=== PATIENT | female | born 1935 | race Caucasian/White ===

== ENCOUNTER 2018-03-12 17:08 | Emergency (ER) | payer MEDICARE, OTHER ==
[~2018-03-12] VITALS: Ht 172.7 cm; Wt 68.0 kg
[2018-03-12] MEDS ORDERED: IV NORMAL SALINE 1000ML BAG 1,000 ML IV ONE (18:00)
[2018-03-12] MEDS ORDERED: PANTOPRAZOLE IV PUSH 40 MG VIAL. IVP ONE (18:00)
[2018-03-12] MEDS ORDERED: ONDANSETRON PF 4 MG/2 ML VIAL. IV ONE (18:00)
[2018-03-12] MEDS ORDERED: IOHEXOL 300 MG/ML 100ML VIAL. IV ONE (18:15)
[2018-03-12 18:23] LABS: BASO % 0 % (0-3); EOS % 0 % (0-3); HEMATOCRIT 42.5 % (36.0-47.0); HEMOGLOBIN 14.6 g/dL (12.0-15.5); LYMPH # 1.7 x10^3/uL (1.0-4.8); LYMPH % 19 % (24-48); MEAN CORPUSCULAR HEMOGLOBIN 30 pg (25-35); MEAN CORPUSCULAR HGB CONC 34 g/dL (31-37); MEAN CORPUSCULAR VOLUME 88 fL (79-100); MONO # 0.8 x10^3/uL (0.0-1.1); MONO % 8 % (0-9); NEUT # 6.4 x10^3uL (1.8-7.7); NEUT % 72 % (31-73); PLATELET COUNT 240 x10^3/uL (140-400); RED BLOOD COUNT 4.84 x10^6/uL (3.50-5.40); RED CELL DISTRIBUTION WIDTH 13.4 % (11.5-14.5); WHITE BLOOD COUNT 8.9 x10^3/uL (4.0-11.0)
[2018-03-12] MEDS ORDERED: CONTRAST GIVEN. MC PRN (18:30)
[2018-03-12 18:31] LABS: BILIRUBIN,URINE NEGATIVE (NEG); CLARITY,URINE CLEAR; COLOR,URINE AMBER; NITRITE,URINE NEGATIVE (NEG); PROTEIN,URINE NEGATIVE (NEG-TRACE)
[2018-03-12 18:39] LABS: BARBITURATES NEG (NEG); BENZODIAZEPINES NEG (NEG); CANNABINOIDS NEG (NEG); COCAINE NEG (NEG); METHADONE NEG (NEG); OPIATES NEG (NEG); PHENCYCLIDINE NEG (NEG)
[2018-03-12 18:43] LABS: AMPHETAMINE/METHAMPHETAMINE NEG (NEG)
[2018-03-12 18:44] LABS: CALCIUM 10.1 mg/dL (8.5-10.1); CREATININE 1.1 mg/dL (0.6-1.0); GFR 47.4; POTASSIUM 3.5 mmol/L (3.5-5.1)
[2018-03-12 18:48] LABS: BACTERIA,URINE MODERATE /HPF (0-FEW); HYALINE CASTS, URINE MODERATE /HPF; RBC,URINE 0 /HPF (0-2); SQUAMOUS EPITHELIAL CELL,UR FEW /LPF
[2018-03-12 18:51] LABS: AMORPHOUS SEDIMENT,UR PRESENT /HPF
[2018-03-12 18:56] LABS: ALBUMIN 3.6 g/dL (3.4-5.0); MAGNESIUM 2.2 mg/dL (1.8-2.4); TOTAL BILIRUBIN 0.6 mg/dL (0.2-1.0); TOTAL PROTEIN 7.3 g/dL (6.4-8.2)
--- NOTE | 2018-03-12 19:53 | RAD ---
PQRS Compliance statement: One or more of the following individualized dose reduction techniques were utilized for this examination: 1. Automated exposure control. 2. Adjustment of the mA and/or kV according to patient size. 3. Use of iterative reconstruction technique. Indication:SYNCOPE, nausea and vomiting TECHNIQUE: CT head without IV contrast COMPARISON: None FINDINGS: No pathologic extra-axial or intra-axial fluid collection. The ventricles and basal cisterns are within normal limits. No acute intracranial bleed. No focal loss of rice-white differentiation. Visualized orbits within normal limits. No suspicious calvarial lesion. Visualized paranasal sinuses and mastoid air cells are clear. Evidence of left mastoid surgery. IMPRESSION: 1. No acute intracranial process. Indication:SYNCOPE, nausea vomiting TECHNIQUE: CT abdomen and pelvis with IV contrast with multiplanar reformats. COMPARISON: None FINDINGS: Heart is normal in size. 5 mm nodule/nodular opacity in the right lower lobe. Otherwise, clear lung bases. 1.1 x 0.7 cm low attenuating lesion in the segment 3 of the liverr otherwise, liver, spleen, pancreas, adrenals and kidneys within normal limits. Gallbladder is completely filled with stone. No pericholecystic fluid. No enlarged retroperitoneal or pelvic adenopathy. Moderate diffuse atherosclerotic calcification seen of the abdominal aorta and bilateral iliac arteries. No bowel obstruction. Sigmoid diverticulosis. No pneumoperitoneum. Anteverted uterus with a calcified fibroid. Urinary bladder within normal limits. No suspicious bony lesion. IMPRESSION: 1. Cholelithiasis (gallbladder completely filled with stones) without imaging evidence of acute cholecystitis. 2. Solitary liver lesion, nonspecific most likely cystic biliary hamartoma or hemangioma in absence of known primary malignancy. Nonemergent ultrasound of the liver can be obtained for further evaluation. Electronically signed by: Toney Cornelius DO (03/12/2018 7:50 PM) [facility]
[2018-03-12 20:30] VITALS: BP 144/77
[2018-03-12] MEDS ORDERED: TRAM50TA PO (21:32)
[2018-03-12] MEDS ORDERED: ONDA4TAB10 SL (21:32)
[2018-03-12] MEDS ORDERED: NITR100C62 PO (21:32)
--- NOTE | 2018-03-12 21:32 | PHYS DOC ---
Past Medical History Past Medical History: Hypertension, Hypothyroid Past Surgical History: No Surgical History Alcohol Use: None Drug Use: None Adult General Chief Complaint Chief Complaint: SYNCOPE HPI HPI Patient is a 82 year old female with a history of hypertension, hypothyroidism , who presents today to be evaluated for syncope episodes. Patient states she was at [facility] [employer] having steak as part of her dinner, she states she went to the bathroom, she states she had 2 syncope episodes. She states she was also nauseated and vomited. She states after vomiting she felt much better. Patient states last time she had similar symptoms was a couple years ago and she was noted to have ischemic colitis. Denies any abdominal pain or diarrhea. Review of Systems Review of Systems Constitutional: Denies fever or chills [] Eyes: Denies change in visual acuity, redness, or eye pain [] HENT: Denies nasal congestion or sore throat [] Respiratory: Denies cough or shortness of breath [] Cardiovascular: No additional information not addressed in HPI [] GI: Reports nausea and vomiting. Denies abdominal pain, bloody stools or diarrhea [] : Denies dysuria or hematuria [] Musculoskeletal: Denies back pain or joint pain [] Integument: Denies rash or skin lesions [] Neurologic: Reports syncope episode. Denies headache, focal weakness or sensory changes [] All other systems were reviewed and found to be within normal limits, except as documented in this note. Current Medications Current Medications Current Medications Medications (Trade) Dose Ordered Sig/Rod Start Time Stop Time Status Last Admin Dose Admin Info (CONTRAST GIVEN -- Rx MONITORING) 1 each PRN DAILY PRN 03/12/18 18:30 03/14/18 18:29 Iohexol (Omnipaque 300 Mg/ml) 75 ml 1X ONCE 03/12/18 18:15 03/12/18 18:16 DC Levofloxacin/ Dextrose 100 ml @ 100 mls/hr 1X ONCE 03/12/18 20:30 03/12/18 21:29 03/12/18 21:01 100 MLS/HR Ondansetron HCl (Zofran) 4 mg 1X ONCE 03/12/18 18:00 03/12/18 18:05 DC 03/12/18 18:22 4 MG Pantoprazole Sodium (PROTONIX VIAL for IV PUSH) 40 mg 1X ONCE 03/12/18 18:00 03/12/18 18:05 DC 03/12/18 19:33 40 MG Sodium Chloride 1,000 ml @ 1,000 mls/hr 1X ONCE 03/12/18 18:00 03/12/18 18:59 DC 03/12/18 18:22 1,000 MLS/HR Trimethoprim/ Sulfamethoxazole 20 ml/Dextrose 500 ml @ 333.333 mls/hr Q8HRS 03/12/18 22:00 UNV Allergies Allergies Allergies Coded Allergies Type Severity Reaction Last Updated Verified Penicillins Allergy Intermediate Swelling 03/12/18 Yes Physical Exam Physical Exam Constitutional: Well developed, well nourished, no acute distress, non-toxic appearance. [] HENT: Normocephalic, atraumatic, bilateral external ears normal, oropharynx moist, no oral exudates, nose normal. [] Eyes: PERRLA, EOMI, conjunctiva normal, no discharge. [] Neck: Normal range of motion, no tenderness, supple, no stridor. [] Cardiovascular:Heart rate regular rhythm, no murmur [] Lungs & Thorax: Bilateral breath sounds clear to auscultation [] Abdomen: Bowel sounds normal, soft, no tenderness, no masses, no pulsatile masses. [] Skin: Warm, dry, no erythema, no rash. [] Back: No tenderness, no CVA tenderness. [] Extremities: No tenderness, no cyanosis, no clubbing, ROM intact, no edema. [] Neurologic: Alert and oriented X 3, normal motor function, normal sensory function, no focal deficits noted. Cranial nerves II through XII intact Psychologic: Affect normal, judgement normal, mood normal. [] Current Patient Data Vital Signs Vital Signs Date Time Temp Pulse Resp B/P (MAP) Pulse Ox O2 Delivery O2 Flow Rate FiO2 03/12/18 19:34 80 18 148/66 (93) 95 Room Air 03/12/18 17:20 97.8 97.8 Lab Values Laboratory Tests Test 03/12/18 18:00 03/12/18 18:13 White Blood Count 8.9 x10^3/uL (4.0-11.0) Red Blood Count 4.84 x10^6/uL (3.50-5.40) Hemoglobin 14.6 g/dL (12.0-15.5) Hematocrit 42.5 % (36.0-47.0) Mean Corpuscular Volume 88 fL (79-100) Mean Corpuscular Hemoglobin 30 pg (25-35) Mean Corpuscular Hemoglobin Concent 34 g/dL (31-37) Red Cell Distribution Width 13.4 % (11.5-14.5) Platelet Count 240 x10^3/uL (140-400) Neutrophils (%) (Auto) 72 % (31-73) Lymphocytes (%) (Auto) 19 % (24-48) L Monocytes (%) (Auto) 8 % (0-9) Eosinophils (%) (Auto) 0 % (0-3) Basophils (%) (Auto) 0 % (0-3) Neutrophils # (Auto) 6.4 x10^3uL (1.8-7.7) Lymphocytes # (Auto) 1.7 x10^3/uL (1.0-4.8) Monocytes # (Auto) 0.8 x10^3/uL (0.0-1.1) Eosinophils # (Auto) 0.0 x10^3/uL (0.0-0.7) Basophils # (Auto) 0.0 x10^3/uL (0.0-0.2) Sodium Level 138 mmol/L (136-145) Potassium Level 3.5 mmol/L (3.5-5.1) Chloride Level 100 mmol/L (98-107) Carbon Dioxide Level 31 mmol/L (21-32) Anion Gap 7 (6-14) Blood Urea Nitrogen 17 mg/dL (7-20) Creatinine 1.1 mg/dL (0.6-1.0) H Estimated GFR (Cockcroft-Gault) 47.4 BUN/Creatinine Ratio 15 (6-20) Glucose Level 152 mg/dL (70-99) H Calcium Level 10.1 mg/dL (8.5-10.1) Magnesium Level 2.2 mg/dL (1.8-2.4) Total Bilirubin 0.6 mg/dL (0.2-1.0) Aspartate Amino Transferase (AST) 18 U/L (15-37) Alanine Aminotransferase (ALT) 17 U/L (14-59) Alkaline Phosphatase 74 U/L (46-116) Troponin I Quantitative < 0.017 ng/mL (0.000-0.055) FC-Abw-D-Type Natriuretic Peptide 264 pg/mL (0-449) Total Protein 7.3 g/dL (6.4-8.2) Albumin 3.6 g/dL (3.4-5.0) Albumin/Globulin Ratio 1.0 (1.0-1.7) Lipase 110 U/L (73-393) Thyroid Stimulating Hormone (TSH) 0.226 uIU/mL (0.358-3.74) L Urine Opiates Screen Neg (NEG) Urine Methadone Screen Neg (NEG) Urine Barbiturates Neg (NEG) Urine Phencyclidine Screen Neg (NEG) Urine Amphetamine/Methamphetamine Neg (NEG) Urine Benzodiazepines Screen Neg (NEG) Urine Cocaine Screen Neg (NEG) Urine Cannabinoids Screen Neg (NEG) Urine Ethyl Alcohol Neg (NEG) Urine Collection Type Void Urine Color [place]an Urine Clarity Clear Urine pH 5.0 Urine Specific [place] 1.025 Urine Protein Negative mg/dL (NEG-TRACE) Urine Glucose (UA) Negative mg/dL (NEG) Urine Ketones (Stick) Trace mg/dL (NEG) Urine Blood Negative (NEG) Urine Nitrite Negative (NEG) Urine Bilirubin Negative (NEG) Urine Urobilinogen Dipstick 1.0 mg/dL (0.2 mg/dL) Urine Leukocyte Esterase Moderate (NEG) Urine RBC 0 /HPF (0-2) Urine WBC 5-10 /HPF (0-4) Urine Squamous Epithelial Cells Few /LPF Urine Amorphous Sediment Present /HPF Urine Bacteria Moderate /HPF (0-FEW) Urine Hyaline Casts Moderate /HPF Urine Mucus Slight /LPF Laboratory Tests 03/12/18 18:00 Laboratory Tests 03/12/18 18:00 EKG EKG [] Radiology/Procedures Radiology/Procedures []PROCEDURE: CT ABD PELV W/ IV CONTRST ONLY PQRS Compliance statement: One or more of the following individualized dose reduction techniques were utilized for this examination: 1. Automated exposure control. 2. Adjustment of the mA and/or kV according to patient size. 3. Use of iterative reconstruction technique. Indication:SYNCOPE, nausea and vomiting TECHNIQUE: CT head without IV contrast COMPARISON: None FINDINGS: No pathologic extra-axial or intra-axial fluid collection. The ventricles and basal cisterns are within normal limits. No acute intracranial bleed. No focal loss of rice-white differentiation. Visualized orbits within normal limits. No suspicious calvarial lesion. Visualized paranasal sinuses and mastoid air cells are clear. Evidence of left mastoid surgery. IMPRESSION: 1. No acute intracranial process. Indication:SYNCOPE, nausea vomiting TECHNIQUE: CT abdomen and pelvis with IV contrast with multiplanar reformats. COMPARISON: None FINDINGS: Heart is normal in size. 5 mm nodule/nodular opacity in the right lower lobe. Otherwise, clear lung bases. 1.1 x 0.7 cm low attenuating lesion in the segment 3 of the liverr otherwise, liver, spleen, pancreas, adrenals and kidneys within normal limits. Gallbladder is completely filled with stone. No pericholecystic fluid. No enlarged retroperitoneal or pelvic adenopathy. Moderate diffuse atherosclerotic calcification seen of the abdominal aorta and bilateral iliac arteries. No bowel obstruction. Sigmoid diverticulosis. No pneumoperitoneum. Anteverted uterus with a calcified fibroid. Urinary bladder within normal limits. No suspicious bony lesion. IMPRESSION: 1. Cholelithiasis (gallbladder completely filled with stones) without imaging evidence of acute cholecystitis. 2. Solitary liver lesion, nonspecific most likely cystic biliary hamartoma or hemangioma in absence of known primary malignancy. Nonemergent ultrasound of the liver can be obtained for further evaluation. Electronically signed by: Toney Cornelius DO (03/12/2018 7:50 PM) [facility] DICTATED and SIGNED BY: TONEY CORNELIUS DO DATE: 03/12/181932 Course & Med Decision Making Course & Med Decision Making Pertinent Labs and Imaging studies reviewed. (See chart for details) This is a 82-year-old female patient presenting to the ED today after having 2 syncope episodes at [facility] today. Patient also experienced nausea and vomiting. She feels better right now. Labs are negative for any acute findings. CT of the head is negative for any acute findings. CT of the abdomen and pelvic was done because patient stated last time she had similar symptoms she had ischemic colitis. CT of the abdomen and pelvic was noted for cholelithiasis(gallbladder completely filled with stones) without evidence of cholecystitis. Also noted for solitary tumor on her liver. Also noted for urinary tract infection. Results were relayed to patient. Patient was offered admission. She declined. She signed out AMA, patient is alert and oriented and able to make her own decisions, her family member was also in the ED who stated she will stay with the patient today, I did give her prescription for Zofran tramadol and Macrobid. She will follow-up with her own PCP next week. I also recommended she follows up with general surgery which she stated she already knows Dr. Vyas and Dr. Corbett. She states she does not want any interventions done for her gallstones. Dragon Disclaimer Dragon Disclaimer This electronic medical record was generated, in whole or in part, using a voice recognition dictation system. Departure Departure Impression: Primary Impression: Syncope Additional Impressions: Nausea and vomiting Cholelithiasis Urinary tract infection Disposition: AGAINST MEDICAL ADVICE Condition: STABLE Referrals: DILLAN MEEK JR, MD (PCP) Follow-up next week JUAN J CORBETT MD follow up next week Patient Instructions: Cholelithiasis, Nausea and Vomiting, [id number], Syncope, [id number], Urinary Tract Infection Additional Instructions: You were evaluated in the emergency room after having a syncope episodes. You were noted to have gallstones, and urinary tract infection. You also have a lesion on your liver which needs to be followed up as an outpatient with the primary care doctor. Consider following up next week. Consider following-up with the general surgeon. Complete your antibiotics for urinary tract infection. Come back to the emergency room at any point symptoms worsen. Scripts Ondansetron (ZOFRAN ODT) 4 Mg Tab.rapdis 1 TAB SL Q8HRS, #15 TAB Prov: ALTAGRACIA TRIPP SOLAR FABRICATION TECHNICIAN 03/12/18 Nitrofurantoin Monohyd/M-Cryst (MACROBID 100 MG CAPSULE) 100 Mg Capsule 1 CAP PO BID, #14 CAP Prov: ALTAGRACIA TRIPP APRN 03/12/18 Tramadol Hcl (TRAMADOL HCL) 50 Mg Tablet 50 MG PO Q6HRS PRN for PAIN, #30 TAB Prov: ALTAGRACIA TRIPP SOLAR FABRICATION TECHNICIAN 03/12/18 Problem Qualifiers Primary Impression: Syncope Syncope type: unspecified Qualified Codes: R55 - Syncope and collapse Additional Impressions: Nausea and vomiting Vomiting type: unspecified Vomiting Intractability: non-intractable Qualified Codes: R11.2 - Nausea with vomiting, unspecified Cholelithiasis Cholelithiasis location: gallbladder Cholecystitis presence: without cholecystitis Biliary obstruction: without biliary obstruction Qualified Codes: K80.20 - Calculus of gallbladder without cholecystitis without obstruction Urinary tract infection Urinary tract infection type: site unspecified Hematuria presence: without hematuria Qualified Codes: N39.0 - Urinary tract infection, site not specified ALTAGRACIA TRIPP APRN Mar 12, 2018 21:32
[2018-03-12] MEDS ORDERED: SULFAMETH/TRIMETH 20 ML in IV DEXTROSE 5% 500 ML IV SCH (22:00)
--- NOTE | 2018-03-12 23:48 | RAD ---
Indication:syncope twice today TECHNIQUE:Portable AP chest X-ray COMPARISON:None FINDINGS: Heart is normal in size. Most likely a calcified granuloma in the right lung base measuring 1.6 cm. Lungs are hyperinflated without focal consolidation. No pneumothorax or pleural effusion. Visualized bony thorax is within normal limits. IMPRESSION: No acute pulmonary process. Electronically signed by: Toney Cornelius DO (03/12/2018 11:45 PM) [facility]
--- NOTE | 2018-03-13 09:19 | EKG ---
[facility] [address] [place] [address] Test Date: 2018-03-12 Test Time: 17:48:09 Pat Name: RODNEY MEEKS Department: Room: Gender: F Vein Pumper: : 1935 Requested By: ALTAGRACIA TRIPP Order Number: [id number] Reading MD: Burak Davis MD Measurements Intervals [place] Rate: 65 P: 49 [place]: 176 QRS: 43 QRSD: 82 T: 47 QT: 396 QTc: 413 Interpretive Statements SINUS RHYTHM Electronically Signed On 03-15-2018 11:29:05 CDT by Burak Davis MD
== END 2018-03-12 21:59 | disposition left against medical advice (07) ==
LOC: ER 17:08
DX: R55 Syncope and collapse (principal); K80.20 Calculus of gallbladder without cholecystitis without obstruction; N39.0 Urinary tract infection, site not specified; I10 Essential (primary) hypertension; E03.9 Hypothyroidism, unspecified; Z88.0 Allergy status to penicillin
CPT/HCPCS: 36415; 70450; 71045; 74177; 80053; 80307; 81001; 83690; 83735; 83880; 84443; 84484; 85025; 93005; 96361; 96365; 96375; 99285; C9113; J1956; J2405; J7030; 87086; G0479

== ENCOUNTER 2018-03-16 08:09 | Inpatient (IN) | payer MEDICARE ==
[~2018-03-16] VITALS: Ht 175.3 cm; Wt 68.0 kg
[~2018-03-16 08:09] MED LIST: NITR100C62 PO; ONDA4TAB10 SL; TRAM50TA PO
[2018-03-16] MEDS ORDERED: ONDANSETRON PF 4 MG/2 ML VIAL. IV ONE (08:45)
[2018-03-16] MEDS ORDERED: IV NORMAL SALINE 1000ML BAG 1,000 ML IV ONE ×2 (08:45→09:15)
--- NOTE | 2018-03-16 08:48 | PHYS DOC ---
Past Medical History Past Medical History: Hypertension, Hypothyroid Past Surgical History: No Surgical History Alcohol Use: None Drug Use: None Adult General Chief Complaint Chief Complaint: WEAKNESS/GENERALIZED HPI HPI Patient is a 82 year old female with history of hypothyroidism, hypertension, who presents today to be admitted for gallstones. Patient was seen in the ED on Thursday last week, was diagnosed with gallstones, patient was offered admission, she declined. She followed up with her PCP who requested her to return to the emergency room and be admitted to have the gallstones removed. 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 Vyas to follow- up with her for gallstones. She is complaining of diarrhea this morning and feeling "blah" PCP Dr. Meek Review of Systems Review of Systems Constitutional: Denies fever or chills [] Eyes: Denies change in visual acuity, redness, or eye pain [] HENT: Denies nasal congestion or sore throat [] Respiratory: Denies cough or shortness of breath [] Cardiovascular: No additional information not addressed in HPI [] GI: Reports diarrhea. Denies abdominal pain, nausea, vomiting, bloody stools : Denies dysuria or hematuria [] Musculoskeletal: Denies back pain or joint pain [] Integument: Denies rash or skin lesions [] Neurologic: Denies headache, focal weakness or sensory changes [] All other systems were reviewed and found to be within normal limits, except as documented in this note. Current Medications Current Medications Current Medications Medications (Trade) Dose Ordered Sig/Rod Start Time Stop Time Status Last Admin Dose Admin Ondansetron HCl (Zofran) 4 mg 1X ONCE 03/16/18 08:45 03/16/18 08:46 DC Sodium Chloride 1,000 ml @ 1,000 mls/hr 1X ONCE 03/16/18 08:45 03/16/18 09:44 03/16/18 09:11 1,000 MLS/HR Allergies Allergies Allergies Coded Allergies Type Severity Reaction Last Updated Verified Penicillins Allergy Intermediate Swelling 03/12/18 Yes Physical Exam Physical Exam Constitutional: Well developed, well nourished, no acute distress, non-toxic appearance. [] HENT: Normocephalic, atraumatic, bilateral external ears normal, oropharynx moist, no oral exudates, nose normal. [] Eyes: PERRLA, EOMI, conjunctiva normal, no discharge. [] Neck: Normal range of motion, no tenderness, supple, no stridor. [] Cardiovascular:Heart rate regular rhythm, no murmur [] Lungs & Thorax: Bilateral breath sounds clear to auscultation [] Abdomen: Bowel sounds normal, soft, no tenderness, no masses, no pulsatile masses. [] Skin: Warm, dry, no erythema, no rash. [] Back: No tenderness, no CVA tenderness. [] Extremities: No tenderness, no cyanosis, no clubbing, ROM intact, no edema. [] Neurologic: Alert and oriented X 3, normal motor function, normal sensory function, no focal deficits noted. [] Psychologic: Affect normal, judgement normal, mood normal. [] Current Patient Data Lab Values Laboratory Tests Test 03/16/18 08:50 White Blood Count 9.4 x10^3/uL (4.0-11.0) Red Blood Count 5.09 x10^6/uL (3.50-5.40) Hemoglobin 15.5 g/dL (12.0-15.5) Hematocrit 44.9 % (36.0-47.0) Mean Corpuscular Volume 88 fL (79-100) Mean Corpuscular Hemoglobin 30 pg (25-35) Mean Corpuscular Hemoglobin Concent 34 g/dL (31-37) Red Cell Distribution Width 13.5 % (11.5-14.5) Platelet Count 290 x10^3/uL (140-400) Neutrophils (%) (Auto) 62 % (31-73) Lymphocytes (%) (Auto) 29 % (24-48) Monocytes (%) (Auto) 9 % (0-9) Eosinophils (%) (Auto) 0 % (0-3) Basophils (%) (Auto) 0 % (0-3) Neutrophils # (Auto) 5.8 x10^3uL (1.8-7.7) Lymphocytes # (Auto) 2.7 x10^3/uL (1.0-4.8) Monocytes # (Auto) 0.8 x10^3/uL (0.0-1.1) Eosinophils # (Auto) 0.0 x10^3/uL (0.0-0.7) Basophils # (Auto) 0.0 x10^3/uL (0.0-0.2) Laboratory Tests 03/16/18 08:50 EKG EKG [] Radiology/Procedures Radiology/Procedures [] Course & Med Decision Making Course & Med Decision Making Pertinent Labs and Imaging studies reviewed. (See chart for details) This is a 82-year-old female patient presenting to the ED today to be admitted for gallstones, she was diagnosed with gallstones on Thursday last week but chose to go home. She is returning with diarrhea. 08:[address] Vyas who agreed to follow-up with patient for general surgery and also requested we do an abdominal ultrasound. 09:[address] Butt who accepted patient for admission. Dragon Disclaimer Dragon Disclaimer This electronic medical record was generated, in whole or in part, using a voice recognition dictation system. Departure Departure Impression: Primary Impression: Gallstones Disposition: ADMITTED INPATIENT Condition: STABLE Referrals: DILLAN MEEK JR, MD (PCP) ALTAGRACIA TRIPP APRN Mar 16, 2018 08:48
[2018-03-16 09:04] LABS: BASO % 0 % (0-3); EOS % 0 % (0-3); HEMATOCRIT 44.9 % (36.0-47.0); HEMOGLOBIN 15.5 g/dL (12.0-15.5); LYMPH # 2.7 x10^3/uL (1.0-4.8); LYMPH % 29 % (24-48); MEAN CORPUSCULAR HEMOGLOBIN 30 pg (25-35); MEAN CORPUSCULAR HGB CONC 34 g/dL (31-37); MEAN CORPUSCULAR VOLUME 88 fL (79-100); MONO # 0.8 x10^3/uL (0.0-1.1); MONO % 9 % (0-9); NEUT # 5.8 x10^3uL (1.8-7.7); NEUT % 62 % (31-73); PLATELET COUNT 290 x10^3/uL (140-400); RED BLOOD COUNT 5.09 x10^6/uL (3.50-5.40); RED CELL DISTRIBUTION WIDTH 13.5 % (11.5-14.5); WHITE BLOOD COUNT 9.4 x10^3/uL (4.0-11.0)
[2018-03-16 09:15] LABS: CALCIUM 10.2 mg/dL (8.5-10.1); CREATININE 1.1 mg/dL (0.6-1.0); GFR 47.4; POTASSIUM 3.5 mmol/L (3.5-5.1); PROTHROMBIN TIME PATIENT 12.8 SEC (11.7-14.0)
[2018-03-16] MEDS ORDERED: ONDANSETRON PF 4 MG/2 ML VIAL. IV PRN ×2 (09:15→14:00)
[2018-03-16] MEDS ORDERED: fentaNYL PF VIAL 100 MCG/2 ML VIAL IV PRN ×3 (09:15→12:45)
[2018-03-16 09:21] LABS: ALBUMIN 3.9 g/dL (3.4-5.0); ALBUMIN/GLOBULIN RATIO 0.9 (1.0-1.7); TOTAL BILIRUBIN 0.6 mg/dL (0.2-1.0); TOTAL PROTEIN 8.1 g/dL (6.4-8.2)
[2018-03-16] MEDS ORDERED: CIPROFLOXACIN 400MG PREMIX 200 ML IV ONE (09:30)
--- NOTE | 2018-03-16 10:01 | RAD ---
ABDOMEN LTD History: Right upper quadrant pain Comparison: There is no previous ultrasound available, correlation made with CT abdomen pelvis exam 07/13/2017 Findings: Multiple sonographic images of the abdomen are submitted. There is segmental visualization of the inferior vena cava. There is no abnormality of the visualized pancreas. Right lobe of the liver measured 14.3 cm longitudinal. There is a hypoechoic lesion along the inferior margin of the left lobe of the liver about 1.2 x 0.6 x 0.3 cm, some internal echoes although increased through transmission, likely somewhat complex cyst. No free fluid is demonstrated. There is again cholelithiasis filling the gallbladder lumen. There is gallbladder wall thickening about 0.4 cm. Common bile duct is considered within normal limits for the patient's age about 0.8 cm. Right kidney measured 9.1 x 4.4 x 4.5 cm, no hydronephrosis. Impression: 1. There is cholelithiasis filling the gallbladder lumen, also mild gallbladder wall thickening which can be seen with cholecystitis in the appropriate clinical setting. Common bile duct is considered within normal limits for the patient's age. 2. There is likely represents a slightly complex hepatic cyst. Electronically signed by: Meet Serna MD (03/16/2018 9:57 AM) [id number]
[2018-03-16 10:15] VITALS: BP 165/47
--- NOTE | 2018-03-16 10:39 | PDOC2 ---
MARIANGEL CUMMINGS CHILD PSYCHOLOGIST 03/16/18 1039: CONSULT Date of Consult Date of Consult DATE: 03/16/18 TIME: 10:34 Reason for Consult Reason for Consult: cholecystitis Referring Physician Referring Physician: ER Identification/Chief Complaint Chief Complaint abdominal pain Source Source: Chart review, Patient History of Present Illness Reason for Visit: Reports Thursday had lunch at [employer], did not feel well, thought needed to stool, syncopal episode in bathroom. Emesis x 1 Thursday. Taken to ER, found to have gallstones. Discharged and FU with PCP yesterday. Was going to see Dr Vyas as an outpt, Today had recurrent symptoms of not feeling well. Pain is mid abdomen, some loose stools, no blood She does have a hx of ischemic colitis Past Medical History Cardiovascular: HTN GI: Other (ischemic colitis) Endocrine: Hypothyroidism Past Surgical History Past Surgical History: No pertinent history Family History Family History: Other (noncontributory to current illness ) Social History No ALCOHOL: rare Drugs: None Lives: Alone Current Medications Current Medications Current Medications Ondansetron HCl (Zofran) 4 mg 1X ONCE IV ; Start 03/16/18 at 08:45; Stop at 08:46; Status DC Sodium Chloride 1,000 ml @ 1,000 mls/hr 1X ONCE IV Last administered on 03/16at 09:11; Start 03/16/18 at 08:45; Stop 03/16/18 at 09:44; Status DC Ondansetron HCl (Zofran) 4 mg PRN Q8HRS PRN IV NAUSEA/VOMITING; Start at 09:15; Stop 03/17/18 at 09:14 Fentanyl Citrate (Fentanyl 2ml Vial) 50 mcg PRN Q2HR PRN IV PAIN; Start at 09:15; Stop 03/17/18 at 09:14 Sodium Chloride 1,000 ml @ 75 mls/hr 1X ONCE IV ; Start 03/16/18 at 09:15; Stop 03/16/18 at 22:34 Ciprofloxacin/ Dextrose 200 ml @ 200 mls/hr Q12HR IV ; Start 03/16/18 at 21:00 Ciprofloxacin/ Dextrose 200 ml @ 200 mls/hr 1X ONCE IV ; Start 03/16/18 at 09 :30; Stop 03/16/18 at 10:29; Status DC Active Scripts Active Zofran Odt (Ondansetron) 4 Mg Tab.rapdis 1 Tab SL Q8HRS Macrobid 100 Mg Capsule (Nitrofurantoin Monohyd/M-Cryst) 100 Mg Capsule 1 Cap PO BID Tramadol Hcl 50 Mg Tablet 50 Mg PO Q6HRS PRN Allergies Allergies: Coded Allergies: Penicillins (Verified Allergy, Intermediate, Swelling, 03/12/18) ROS General: No: Chills, Other (fevers) PSYCHOLOGICAL ROS: No: Anxiety, Depression Eyes: No Blurry vision, No Double vision HEENT: No: Heacaches, Sore Throat Hematological and Lymphatic: No: Bleeding Problems, Blood Clots Respiratory: No: Cough, Shortness of breath Cardiovascular: No Chest Pain, No Palpitations Gastrointestinal: Yes Other (see hpi) Genitourinary: No Dysuria, No Hematuria Musculoskeletal: No Joint Pain, No Muscle Pain Neurological: No Headaches, No Numbness/Tingling Skin: No Pruritus, No Rash Physical Exam General: Alert, Oriented X3, Cooperative, No acute distress HEENT: PERRLA, Mucous membr. moist/pink Lungs: Clear to auscultation, Normal air movement Heart: Regular rate, Normal S1, Normal S2, No murmurs Abdomen: Soft, Other (TTP mid right abdomen ) Extremities: No clubbing, No cyanosis Skin: No rashes, No breakdown Neuro: Normal gait, Normal speech Psych/Mental Status: Mental status NL, Mood NL MUSCULOSKELETAL: No deformity, No swelling Vitals VITALS Vital Signs Date Time Temp Pulse Resp B/P (MAP) Pulse Ox O2 Delivery O2 Flow Rate FiO2 03/16/18 09:32 78 18 95 03/16/18 09:16 98.1 150/96 (114) Room Air 98.1 Labs Labs Laboratory Tests Test 03/16/18 08:50 White Blood Count 9.4 x10^3/uL (4.0-11.0) Red Blood Count 5.09 x10^6/uL (3.50-5.40) Hemoglobin 15.5 g/dL (12.0-15.5) Hematocrit 44.9 % (36.0-47.0) Mean Corpuscular Volume 88 fL (79-100) Mean Corpuscular Hemoglobin 30 pg (25-35) Mean Corpuscular Hemoglobin Concent 34 g/dL (31-37) Red Cell Distribution Width 13.5 % (11.5-14.5) Platelet Count 290 x10^3/uL (140-400) Neutrophils (%) (Auto) 62 % (31-73) Lymphocytes (%) (Auto) 29 % (24-48) Monocytes (%) (Auto) 9 % (0-9) Eosinophils (%) (Auto) 0 % (0-3) Basophils (%) (Auto) 0 % (0-3) Neutrophils # (Auto) 5.8 x10^3uL (1.8-7.7) Lymphocytes # (Auto) 2.7 x10^3/uL (1.0-4.8) Monocytes # (Auto) 0.8 x10^3/uL (0.0-1.1) Eosinophils # (Auto) 0.0 x10^3/uL (0.0-0.7) Basophils # (Auto) 0.0 x10^3/uL (0.0-0.2) Prothrombin Time 12.8 SEC (11.7-14.0) Prothromb Time International Ratio 1.0 (0.8-1.1) Activated Partial Thromboplast Time 34 SEC (24-38) Sodium Level 139 mmol/L (136-145) Potassium Level 3.5 mmol/L (3.5-5.1) Chloride Level 98 mmol/L (98-107) Carbon Dioxide Level 31 mmol/L (21-32) Anion Gap 10 (6-14) Blood Urea Nitrogen 12 mg/dL (7-20) Creatinine 1.1 mg/dL (0.6-1.0) Estimated GFR (Cockcroft-Gault) 47.4 BUN/Creatinine Ratio 11 (6-20) Glucose Level 125 mg/dL (70-99) Calcium Level 10.2 mg/dL (8.5-10.1) Total Bilirubin 0.6 mg/dL (0.2-1.0) Aspartate Amino Transf (AST/SGOT) 19 U/L (15-37) Alanine Aminotransferase (ALT/SGPT) 16 U/L (14-59) Alkaline Phosphatase 84 U/L (46-116) Total Protein 8.1 g/dL (6.4-8.2) Albumin 3.9 g/dL (3.4-5.0) Albumin/Globulin Ratio 0.9 (1.0-1.7) Lipase 126 U/L (73-393) Laboratory Tests Test 03/16/18 08:50 White Blood Count 9.4 x10^3/uL (4.0-11.0) Red Blood Count 5.09 x10^6/uL (3.50-5.40) Hemoglobin 15.5 g/dL (12.0-15.5) Hematocrit 44.9 % (36.0-47.0) Mean Corpuscular Volume 88 fL (79-100) Mean Corpuscular Hemoglobin 30 pg (25-35) Mean Corpuscular Hemoglobin Concent 34 g/dL (31-37) Red Cell Distribution Width 13.5 % (11.5-14.5) Platelet Count 290 x10^3/uL (140-400) Neutrophils (%) (Auto) 62 % (31-73) Lymphocytes (%) (Auto) 29 % (24-48) Monocytes (%) (Auto) 9 % (0-9) Eosinophils (%) (Auto) 0 % (0-3) Basophils (%) (Auto) 0 % (0-3) Neutrophils # (Auto) 5.8 x10^3uL (1.8-7.7) Lymphocytes # (Auto) 2.7 x10^3/uL (1.0-4.8) Monocytes # (Auto) 0.8 x10^3/uL (0.0-1.1) Eosinophils # (Auto) 0.0 x10^3/uL (0.0-0.7) Basophils # (Auto) 0.0 x10^3/uL (0.0-0.2) Prothrombin Time 12.8 SEC (11.7-14.0) Prothromb Time International Ratio 1.0 (0.8-1.1) Activated Partial Thromboplast Time 34 SEC (24-38) Sodium Level 139 mmol/L (136-145) Potassium Level 3.5 mmol/L (3.5-5.1) Chloride Level 98 mmol/L (98-107) Carbon Dioxide Level 31 mmol/L (21-32) Anion Gap 10 (6-14) Blood Urea Nitrogen 12 mg/dL (7-20) Creatinine 1.1 mg/dL (0.6-1.0) Estimated GFR (Cockcroft-Gault) 47.4 BUN/Creatinine Ratio 11 (6-20) Glucose Level 125 mg/dL (70-99) Calcium Level 10.2 mg/dL (8.5-10.1) Total Bilirubin 0.6 mg/dL (0.2-1.0) Aspartate Amino Transf (AST/SGOT) 19 U/L (15-37) Alanine Aminotransferase (ALT/SGPT) 16 U/L (14-59) Alkaline Phosphatase 84 U/L (46-116) Total Protein 8.1 g/dL (6.4-8.2) Albumin 3.9 g/dL (3.4-5.0) Albumin/Globulin Ratio 0.9 (1.0-1.7) Lipase 126 U/L (73-393) Assessment/Plan Assessment/Plan abdominal pain, diarrhea US concerning for cholecystitis will review with NICK Greene MD 03/16/18 4455: CONSULT Assessment/Plan Assessment/Plan Pt seen and examined. Agree with Ms. Cummings's note Pt reports hx of ischemic colitis with similar symptoms a year ago, treated at [facility]. Developed loose stools and syncope a few days ago. Seen in ER and was noted to have gallstones. Denies any abd pain. Has noted some blood in stool abd soft, ND, NTTP strongly agree with GI work up given hx and blood in stool also strongly agree with cards evaluation, given syncope Will not plan surgery currently, given asymptomatic d/w pt and pt's supportive family. Thanks for consult! MARIANGEL CUMMINGS APRN Mar 16, 2018 10:39 NICK VYAS MD Mar 16, 2018 13:59
[2018-03-16] MEDS ORDERED: LISI1TAB7 PO (11:13)
[2018-03-16] MEDS ORDERED: MULT-650 PO (11:13)
[2018-03-16] MEDS ORDERED: VIT1TABL34 PO (11:13)
[2018-03-16] MEDS ORDERED: ASPI-612 PO (11:13)
[2018-03-16] MEDS ORDERED: LEVO125T5 PO (11:13)
[2018-03-16] MEDS ORDERED: CALC-98 PO (11:13)
[2018-03-16] MEDS ORDERED: AMLO5TAB7 PO (11:13)
[2018-03-16] MEDS ORDERED: CETI10TA22 PO (11:13)
[2018-03-16] MEDS ORDERED: SURGICEL HEMOSTAT 2X3 EACH. ONE (11:23)
[2018-03-16] MEDS ORDERED: BISACODYL 10 MG SUPP.RECT. ONE (11:23)
[2018-03-16] MEDS ORDERED: IOHEXOL 300 MG/ML 100ML VIAL. ONE (11:23)
[2018-03-16] MEDS ORDERED: BUPIVACAINE-EPI 0.5%-1:200000 50 ML VIAL. ONE (11:23)
[2018-03-16] MEDS ORDERED: IV RINGERS,LACTATED 1000ML 1,000 ML IV SCH (12:37)
[2018-03-16] MEDS ORDERED: MORPHINE SULFATE 2 MG/ML VIAL. IV PRN ×2 (12:45→14:00)
[2018-03-16] MEDS ORDERED: HYDROmorphone 2 MG/ML VIAL IV PRN (12:45)
[2018-03-16] MEDS ORDERED: LIDOCAINE 1% PF 2 ML VIAL. ID PRN (12:45)
[2018-03-16] MEDS ORDERED: PROCHLORPERAZINE 10 MG/2 ML VIAL. IV PRN (12:45)
--- NOTE | 2018-03-16 13:07 | PDOC1 ---
History and Physical Date of Admission Date of Admission 03/16/18 Identification/Chief Complaint Chief Complaint gallstone Source Source: Chart review, Patient History of Present Illness History of Present Illness HPI Patient is a 82 year old female with history of hypothyroidism, hypertension, who presents today to be admitted for gallstones. pt had some nausea last madalyn, syncope, came to ER, was fund gallstone but pt wanted to go home and then dced from ER. She fu with PCP yesterday and was told to do sx with dr. Vyas. 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 She denies N/V, abd pain, fever, chills. had one time loose BM today. PCP Dr. Parra Past Medical History Cardiovascular: HTN GI: Other (ischemic colitis) Endocrine: Hypothyroidism Past Surgical History Past Surgical History: No pertinent history Family History Family History: Other (noncontributory to current illness ) Social History Smoke: No ALCOHOL: rare Drugs: None Current Medications Current Medications Current Medications Medications (Trade) Dose Ordered Sig/Rod Start Time Stop Time Status Last Admin Dose Admin Bisacodyl (Dulcolax Supp) 10 mg STK-MED ONCE 03/16/18 11:23 03/16/18 12:23 DC Bupivacaine HCl/ Epinephrine Bitart (Marcaine-Epi 0.5%-1:[id number]) 50 ml STK-MED ONCE 03/16/18 11:23 03/16/18 12:23 DC Cellulose (Surgicel Hemostat 2x3) 1 each STK-MED ONCE 03/16/18 11:23 03/16/18 12:23 DC Ciprofloxacin/ Dextrose 200 ml @ 200 mls/hr 1X ONCE 03/16/18 09:30 03/16/18 10:29 DC Fentanyl Citrate (Fentanyl 2ml Vial) 50 mcg PRN Q5MIN PRN 03/16/18 12:45 03/17/18 12:44 Hydromorphone HCl (Dilaudid) 0.5 mg PRN Q10MIN PRN 03/16/18 12:45 03/17/18 12:44 Iohexol (Omnipaque 300 Mg/ml) 100 ml STK-MED ONCE 03/16/18 11:23 03/16/18 12:23 DC Lidocaine HCl (Xylocaine-Mpf 1% 2ml Vial) 2 ml PRN 1X PRN 03/16/18 12:45 03/17/18 12:44 Morphine Sulfate (Morphine Sulfate) 1 mg PRN Q10MIN PRN 03/16/18 12:45 03/17/18 12:44 Ondansetron HCl (Zofran) 4 mg PRN Q8HRS PRN 03/16/18 09:15 03/17/18 09:14 Prochlorperazine Edisylate (Compazine) 5 mg PACU PRN PRN 03/16/18 12:45 03/17/18 12:44 Ringer's Solution 1,000 ml @ 30 mls/hr Q24H 03/16/18 12:37 03/17/18 00:36 Sodium Chloride 1,000 ml @ 75 mls/hr 1X ONCE 03/16/18 09:15 03/16/18 22:34 Allergies Allergies Allergies Coded Allergies Type Severity Reaction Last Updated Verified Penicillins Allergy Intermediate Swelling 03/12/18 Yes ROS Review of System CONSTITUTIONAL: No fever or chills EYES: No recent changes SKIN: No rash or itching CARDIOVASCULAR: No chest pain, syncope, palpitations, or edema RESPIRATORY: No SOB or cough GASTROINTESTINAL: No nausea, vomiting or abdominal pain NEUROLOGICAL: No headaches or weakness ENDOCRINE: No cold or heat intolerance GENITOURINARY: No urgency or frequency of urination MUSCULOSKELETAL: No back pain or joint pain LYMPHATICS: No enlarged lymph nodes PSYCHIATRIC: No anxiety or depression Physical Exam Physical Exam GEN.: No apparent distress. Alert and oriented. HEENT: Head is normocephalic, atraumatic NECK: Supple. LUNGS: Clear to auscultation. HEART: RRR, S1, S2 present. Peripheral pulses intact ABDOMEN: Soft, Positive bowel sounds. middle lower abd mild tenderness, no guarding or rebound. EXTREMITIES: Without any cyanosis. NEUROLOGIC: Normal speech, normal tone PSYCHIATRIC: Normal affect, normal mood. SKIN: No ulcerations Vitals Vitals Vital Signs Date Time Temp Pulse Resp B/P (MAP) Pulse Ox O2 Delivery O2 Flow Rate FiO2 03/16/18 11:14 Room Air 03/16/18 10:15 95.9 66 18 165/47 (86) 98 95.9 Labs Labs Laboratory Tests Test 03/16/18 08:50 White Blood Count 9.4 x10^3/uL (4.0-11.0) Red Blood Count 5.09 x10^6/uL (3.50-5.40) Hemoglobin 15.5 g/dL (12.0-15.5) Hematocrit 44.9 % (36.0-47.0) Mean Corpuscular Volume 88 fL (79-100) Mean Corpuscular Hemoglobin 30 pg (25-35) Mean Corpuscular Hemoglobin Concent 34 g/dL (31-37) Red Cell Distribution Width 13.5 % (11.5-14.5) Platelet Count 290 x10^3/uL (140-400) Neutrophils (%) (Auto) 62 % (31-73) Lymphocytes (%) (Auto) 29 % (24-48) Monocytes (%) (Auto) 9 % (0-9) Eosinophils (%) (Auto) 0 % (0-3) Basophils (%) (Auto) 0 % (0-3) Neutrophils # (Auto) 5.8 x10^3uL (1.8-7.7) Lymphocytes # (Auto) 2.7 x10^3/uL (1.0-4.8) Monocytes # (Auto) 0.8 x10^3/uL (0.0-1.1) Eosinophils # (Auto) 0.0 x10^3/uL (0.0-0.7) Basophils # (Auto) 0.0 x10^3/uL (0.0-0.2) Prothrombin Time 12.8 SEC (11.7-14.0) Prothromb Time International Ratio 1.0 (0.8-1.1) Activated Partial Thromboplast Time 34 SEC (24-38) Sodium Level 139 mmol/L (136-145) Potassium Level 3.5 mmol/L (3.5-5.1) Chloride Level 98 mmol/L (98-107) Carbon Dioxide Level 31 mmol/L (21-32) Anion Gap 10 (6-14) Blood Urea Nitrogen 12 mg/dL (7-20) Creatinine 1.1 mg/dL (0.6-1.0) Estimated GFR (Cockcroft-Gault) 47.4 BUN/Creatinine Ratio 11 (6-20) Glucose Level 125 mg/dL (70-99) Calcium Level 10.2 mg/dL (8.5-10.1) Total Bilirubin 0.6 mg/dL (0.2-1.0) Aspartate Amino Transf (AST/SGOT) 19 U/L (15-37) Alanine Aminotransferase (ALT/SGPT) 16 U/L (14-59) Alkaline Phosphatase 84 U/L (46-116) Total Protein 8.1 g/dL (6.4-8.2) Albumin 3.9 g/dL (3.4-5.0) Albumin/Globulin Ratio 0.9 (1.0-1.7) Lipase 126 U/L (73-393) Laboratory Tests Test 03/16/18 08:50 White Blood Count 9.4 x10^3/uL (4.0-11.0) Red Blood Count 5.09 x10^6/uL (3.50-5.40) Hemoglobin 15.5 g/dL (12.0-15.5) Hematocrit 44.9 % (36.0-47.0) Mean Corpuscular Volume 88 fL (79-100) Mean Corpuscular Hemoglobin 30 pg (25-35) Mean Corpuscular Hemoglobin Concent 34 g/dL (31-37) Red Cell Distribution Width 13.5 % (11.5-14.5) Platelet Count 290 x10^3/uL (140-400) Neutrophils (%) (Auto) 62 % (31-73) Lymphocytes (%) (Auto) 29 % (24-48) Monocytes (%) (Auto) 9 % (0-9) Eosinophils (%) (Auto) 0 % (0-3) Basophils (%) (Auto) 0 % (0-3) Neutrophils # (Auto) 5.8 x10^3uL (1.8-7.7) Lymphocytes # (Auto) 2.7 x10^3/uL (1.0-4.8) Monocytes # (Auto) 0.8 x10^3/uL (0.0-1.1) Eosinophils # (Auto) 0.0 x10^3/uL (0.0-0.7) Basophils # (Auto) 0.0 x10^3/uL (0.0-0.2) Prothrombin Time 12.8 SEC (11.7-14.0) Prothromb Time International Ratio 1.0 (0.8-1.1) Activated Partial Thromboplast Time 34 SEC (24-38) Sodium Level 139 mmol/L (136-145) Potassium Level 3.5 mmol/L (3.5-5.1) Chloride Level 98 mmol/L (98-107) Carbon Dioxide Level 31 mmol/L (21-32) Anion Gap 10 (6-14) Blood Urea Nitrogen 12 mg/dL (7-20) Creatinine 1.1 mg/dL (0.6-1.0) Estimated GFR (Cockcroft-Gault) 47.4 BUN/Creatinine Ratio 11 (6-20) Glucose Level 125 mg/dL (70-99) Calcium Level 10.2 mg/dL (8.5-10.1) Total Bilirubin 0.6 mg/dL (0.2-1.0) Aspartate Amino Transf (AST/SGOT) 19 U/L (15-37) Alanine Aminotransferase (ALT/SGPT) 16 U/L (14-59) Alkaline Phosphatase 84 U/L (46-116) Total Protein 8.1 g/dL (6.4-8.2) Albumin 3.9 g/dL (3.4-5.0) Albumin/Globulin Ratio 0.9 (1.0-1.7) Lipase 126 U/L (73-393) VTE Prophylaxis Ordered VTE Prophylaxis Devices: Yes VTE Pharmacological Prophylaxi: No Assessment/Plan Assessment/Plan cholelithiasis possible acute cholecystitis on US HTN hypothyroidism recent syncope plan: fu with sx keep npo for now ivf resume home po meds tmr dvt ppx tmr pain control if need cont cipro for now check carotid US, echo, card, gi consult for bloody stool Hb stable tho. talked to nurse. ROCIO BOURGEOIS MD Mar 16, 2018 13:07
[2018-03-16] MEDS: LISINOPRIL 20 MG TABLET PO SCH (14:00)
[2018-03-16] MEDS: hydroCHLOROthiazide 25 MG TABLET PO SCH (14:00)
[2018-03-16] MEDS: CETIRIZINE HCL 10 MG TABLET. PO SCH (14:00)
[2018-03-16] MEDS: MULTIVITAMIN with MINERAL TABLET. PO SCH (14:00)
[2018-03-16] MEDS ORDERED: ACETAMINOPHEN 325 MG TABLET. PO PRN (14:00)
[2018-03-16] MEDS: LEVOTHYROXINE 125 MCG TABLET PO SCH (14:00)
[2018-03-16] MEDS ORDERED: traMADol 50 MG TABLET PO PRN (14:00)
[2018-03-16] MEDS ORDERED: DOCUSATE SODIUM 100 MG CAPSULE. PO PRN (14:00)
[2018-03-16] MEDS: MULTIVITAMIN I-VITE TABLET. PO SCH (14:00)
[2018-03-16] MEDS: amLODIPine BESYLATE 5 MG TABLET PO SCH (14:00)
[2018-03-16] MEDS: ASPIRIN ENTERIC COATED 81 MG TABLET.DR. PO SCH (14:00)
[2018-03-16] MEDS: IV NORMAL SALINE 1000ML BAG 1,000 ML IV SCH (14:30)
--- NOTE | 2018-03-16 14:31 | EKG ---
[facility] [address] [place] [address] Test Date: 2018-03-16 Test Time: 14:24:37 Pat Name: RODNEY MEEKS Department: Room: 426 1 Gender: F [employer]: CRISS : 1935 Requested By: VIKKI AYON Order Number: [id number] Reading MD: Eugene Dow Measurements Intervals [place] Rate: 63 P: 53 MT: 168 QRS: 62 QRSD: 80 T: 34 QT: 396 QTc: 408 Interpretive Statements SINUS RHYTHM QRS(T) CONTOUR ABNORMALITY CONSIDER ANTEROLATERAL MYOCARDIAL DAMAGE POSSIBLY ABNORMAL ECG Electronically Signed On 03-19-2018 10:25:29 CDT by Eugene Dow
[2018-03-16 15:00] VITALS: BP 148/54
--- NOTE | 2018-03-16 15:14 | PDOC2 ---
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 On Thursday, enjoyed going out to eat. After dinner, felt really full like she ate too much and went to the restroom. Did not have a bowel movement, but fainted and woke up on the floor. Later vomited but did not have abdominal pain. Came to the [facility] ER. CT head was unrevealing, and CT A/P noted cholelithiasis. She declined admission but did take antibiotics for possible UTI as recommended. She followed-up w/ PCP yesterday w/ plans to see surgery as outpt re: gallstones. This morning on her way to volunteer, didn't feel well. Had a small stool (without blood), then felt clammy and weak so decided to go back to the ER. Later this morning, passed red blood 2-3 times. Might have some lower abdominal tenderness now. Symptoms are similar to previous episode of ischemic colitis (@[facility] in 03/2017) . Takes daily ASA. Hgb is 15.5. Denies reflux/heartburn, dysphagia, diarrhea, change in appetite, or weight loss. No melena. Typically no issues w/ n/v. Occasional constipation when traveling, also felt constipated last week and took a stool softener (and then had a normal stool). Screening colonoscopy performed by Dr. Cabello on 01/17/11 showed sigmoid diverticulosis. Colonoscopy (seems extent was to sigmoid colon) performed by Dr. Street on for abdominal pain, bleeding, and abnormal CT following syncope was visually c/w ischemic colitis. Sigmoid biopsies showed superficial hyperplastic changes. PMH: PMH: HTN, hypothyroidism, cholelithiasis, diverticulosis, hepatic cyst, ischemic colitis, arm fracture, D&C, cataract removal, left mastoid procedure FH: Family History: No pertinent hx Social History: Smoke: No ALCOHOL: rare Drugs: None ROS: GEN: Denies fevers, chills, sweats HEENT: Denies blurred vision, sore throat CV: Denies chest pain RESP: Denies shortness of air, cough GI: Per HPI : Denies hematuria, dysuria ENDO: Denies weight changes NEURO: +syncope MSK: Denies weakness, joint pain/swelling SKIN: Denies jaundice, pruritus Vitals: Vitals: Vital Signs Date Time Temp Pulse Resp B/P (MAP) Pulse Ox O2 Delivery O2 Flow Rate FiO2 03/16/18 11:14 Room Air 03/16/18 10:15 95.9 66 18 165/47 (86) 98 95.9 Labs: Labs: Laboratory Tests Test 03/16/18 08:50 White Blood Count 9.4 x10^3/uL (4.0-11.0) Red Blood Count 5.09 x10^6/uL (3.50-5.40) Hemoglobin 15.5 g/dL (12.0-15.5) Hematocrit 44.9 % (36.0-47.0) Mean Corpuscular Volume 88 fL (79-100) Mean Corpuscular Hemoglobin 30 pg (25-35) Mean Corpuscular Hemoglobin Concent 34 g/dL (31-37) Red Cell Distribution Width 13.5 % (11.5-14.5) Platelet Count 290 x10^3/uL (140-400) Neutrophils (%) (Auto) 62 % (31-73) Lymphocytes (%) (Auto) 29 % (24-48) Monocytes (%) (Auto) 9 % (0-9) Eosinophils (%) (Auto) 0 % (0-3) Basophils (%) (Auto) 0 % (0-3) Neutrophils # (Auto) 5.8 x10^3uL (1.8-7.7) Lymphocytes # (Auto) 2.7 x10^3/uL (1.0-4.8) Monocytes # (Auto) 0.8 x10^3/uL (0.0-1.1) Eosinophils # (Auto) 0.0 x10^3/uL (0.0-0.7) Basophils # (Auto) 0.0 x10^3/uL (0.0-0.2) Prothrombin Time 12.8 SEC (11.7-14.0) Prothromb Time International Ratio 1.0 (0.8-1.1) Activated Partial Thromboplast Time 34 SEC (24-38) Sodium Level 139 mmol/L (136-145) Potassium Level 3.5 mmol/L (3.5-5.1) Chloride Level 98 mmol/L (98-107) Carbon Dioxide Level 31 mmol/L (21-32) Anion Gap 10 (6-14) Blood Urea Nitrogen 12 mg/dL (7-20) Creatinine 1.1 mg/dL (0.6-1.0) Estimated GFR (Cockcroft-Gault) 47.4 BUN/Creatinine Ratio 11 (6-20) Glucose Level 125 mg/dL (70-99) Calcium Level 10.2 mg/dL (8.5-10.1) Total Bilirubin 0.6 mg/dL (0.2-1.0) Aspartate Amino Transf (AST/SGOT) 19 U/L (15-37) Alanine Aminotransferase (ALT/SGPT) 16 U/L (14-59) Alkaline Phosphatase 84 U/L (46-116) Total Protein 8.1 g/dL (6.4-8.2) Albumin 3.9 g/dL (3.4-5.0) Albumin/Globulin Ratio 0.9 (1.0-1.7) Lipase 126 U/L (73-393) Allergies: Coded Allergies: Penicillins (Verified Allergy, Intermediate, Swelling, 03/12/18) Medications: Current Medications Medications (Trade) Dose Ordered Sig/Rod Route PRN Reason Start Time Stop Time Status Last Admin Dose Admin Sodium Chloride 1,000 ml @ 1,000 mls/hr 1X ONCE IV 03/16/18 08:45 03/16/18 09:44 DC 03/16/18 09:11 Sodium Chloride 1,000 ml @ 75 mls/hr [id number] IV 03/16/18 14:00 03/16/18 14:30 Imaging: Imaging: [facility] US 03/16/18 Multiple sonographic images of the abdomen are submitted. There is segmental visualization of the inferior vena cava. There is no abnormality of the visualized pancreas. Right lobe of the liver measured 14.3 cm longitudinal. There is a hypoechoic lesion along the inferior margin of the left lobe of the liver about 1.2 x 0.6 x 0.3 cm, some internal echoes although increased through transmission, likely somewhat complex cyst. No free fluid is demonstrated. There is again cholelithiasis filling the gallbladder lumen. There is gallbladder wall thickening about 0.4 cm. Common bile duct is considered within normal limits for the patient's age about 0.8 cm. Right kidney measured 9.1 x 4.4 x 4.5 cm, no hydronephrosis. Impression: 1. There is cholelithiasis filling the gallbladder lumen, also mild gallbladder wall thickening which can be seen with cholecystitis in the appropriate clinical setting. Common bile duct is considered within normal limits for the patient's age. 2. There is likely represents a slightly complex hepatic cyst. CT Head 03/12/18 FINDINGS: No pathologic extra-axial or intra-axial fluid collection. The ventricles and basal cisterns are within normal limits. No acute intracranial bleed. No focal loss of rice-white differentiation. Visualized orbits within normal limits. No suspicious calvarial lesion. Visualized paranasal sinuses and mastoid air cells are clear. Evidence of left mastoid surgery. IMPRESSION: 1. No acute intracranial process. CT A/P 03/12/18 FINDINGS: Heart is normal in size. 5 mm nodule/nodular opacity in the right lower lobe. Otherwise, clear lung bases. 1.1 x 0.7 cm low attenuating lesion in the segment 3 of the liverr otherwise, liver, spleen, pancreas, adrenals and kidneys within normal limits. Gallbladder is completely filled with stone. No pericholecystic fluid. No enlarged retroperitoneal or pelvic adenopathy. Moderate diffuse atherosclerotic calcification seen of the abdominal aorta and bilateral iliac arteries. No bowel obstruction. Sigmoid diverticulosis. No pneumoperitoneum. Anteverted uterus with a calcified fibroid. Urinary bladder within normal limits. No suspicious bony lesion. IMPRESSION: 1. Cholelithiasis (gallbladder completely filled with stones) without imaging evidence of acute cholecystitis. 2. Solitary liver lesion, nonspecific most likely cystic biliary hamartoma or hemangioma in absence of known primary malignancy. Nonemergent ultrasound of the liver can be obtained for further evaluation. PE: GEN: NAD HEENT: Atraumatic, PERRL LUNGS: CTAB HEART: RRR ABD: NABS, S/ND/NT EXTREMITY: No edema SKIN: No rashes, no jaundice NEURO/PSYCH: A & O 3 A/P: A/P: Syncope, blood in stool, h/o ischemic colitis CRC screen - UTD, see HPI Diverticulosis Cholelithiasis -- Story c/w ischemic colitis. Normal Hgb. No plans to repeat colonoscopy at this time - recent exam ~1 year ago. Try clear liquids and observe. Has been on atbx - ?need for Cipro now - will check C Diff. Note stool culture is pending. Note plans for cardiology to see re: syncope. GARRETT HOLT Mar 16, 2018 15:14
--- NOTE | 2018-03-16 16:52 | PDOC2 ---
CARDIAC CONSULT DATE OF CONSULT Date of Consult DATE: 03/16/18 TIME: 16:30 REASON FOR CONSULT Reason for Consult: Syncope REFERRING PHYSICIAN Referring Physician: Filomena SOURCE Source: Chart review, Patient HISTORY OF PRESENT ILLNESS HISTORY OF PRESENT ILLNESS This is a pleasant 82 yo female admitted for complains of abdominal cramps. Reports of gallstone with possible need for surgery. No nausea or vomiting but did have a bout of diarrhea. Last Thursday night she passed out after sitting in the toilet trying to have a BM again because of sensation of abdominal cramps. She was at a restaurant at that time and at [facility] went to the bathroom was sitting on the toilet and she started feeling clammy but no CP, SOA or palpitations. Reports that the next thing she was on the floor with someone attending to her. According to her this was brief. The last time this happened to her was about a year ago with again GI symptoms related to ischemic colitis. No prior dizzy spells, syncope unrelated to abdominal symptoms and no hx od heart disease or arrhythmias. She does however does not drink enough fluids despite being on 3 BP meds including HCTZ. PAST MEDICAL HISTORY Cardiovascular: HTN GI: Other (colitis) Hepatobiliary: Cholelithiasis Musculoskeletal: Osteoarthritis Renal/: Urinary Incontinence Endocrine: Hypothyroidism PAST SURGICAL HISTORY Past Surgical History: No pertinent history FAMILY HISTORY Family History noncontributory to CV SOCIAL HISTORY Smoke: No ALCOHOL: none Drugs: None Lives: with Family CURRENT MEDICATIONS CURRENT MEDICATIONS Current Medications Medications (Trade) Dose Ordered Sig/Rod Route PRN Reason Start Time Stop Time Status Last Admin Dose Admin Sodium Chloride 1,000 ml @ 1,000 mls/hr 1X ONCE IV 03/16/18 08:45 03/16/18 09:44 DC 03/16/18 09:11 Sodium Chloride 1,000 ml @ 75 mls/hr [id number] IV 03/16/18 14:00 03/16/18 14:30 ALLERGIES ALLERGIES: Coded Allergies: Penicillins (Verified Allergy, Intermediate, Swelling, 03/12/18) ROS Review of System 14 point ROS evaluated with pertinent positives noted per HPI PHYSICAL EXAM General: Alert, Oriented X3, Cooperative, No acute distress HEENT: Atraumatic, Mucous membr. moist/pink Lungs: Clear to auscultation, Normal air movement Heart: Regular rate (SR), Normal S1, Normal S2, Other (3/6 systolic murmur to LINDA) Abdomen: Soft, No tenderness Extremities: No cyanosis, No edema Skin: No breakdown, No significant lesion Neuro: Normal speech, Sensation intact Psych/Mental Status: Mental status NL, Mood NL MUSCULOSKELETAL: Osteoarthritic changes both hands VITALS VITALS Vital Signs Date Time Temp Pulse Resp B/P (MAP) Pulse Ox O2 Delivery O2 Flow Rate FiO2 03/16/18 15:00 98.1 69 16 148/54 (85) 98 Room Air 98.1 LABS Lab: Laboratory Tests Test 03/16/18 08:50 White Blood Count 9.4 x10^3/uL (4.0-11.0) Red Blood Count 5.09 x10^6/uL (3.50-5.40) Hemoglobin 15.5 g/dL (12.0-15.5) Hematocrit 44.9 % (36.0-47.0) Mean Corpuscular Volume 88 fL (79-100) Mean Corpuscular Hemoglobin 30 pg (25-35) Mean Corpuscular Hemoglobin Concent 34 g/dL (31-37) Red Cell Distribution Width 13.5 % (11.5-14.5) Platelet Count 290 x10^3/uL (140-400) Neutrophils (%) (Auto) 62 % (31-73) Lymphocytes (%) (Auto) 29 % (24-48) Monocytes (%) (Auto) 9 % (0-9) Eosinophils (%) (Auto) 0 % (0-3) Basophils (%) (Auto) 0 % (0-3) Neutrophils # (Auto) 5.8 x10^3uL (1.8-7.7) Lymphocytes # (Auto) 2.7 x10^3/uL (1.0-4.8) Monocytes # (Auto) 0.8 x10^3/uL (0.0-1.1) Eosinophils # (Auto) 0.0 x10^3/uL (0.0-0.7) Basophils # (Auto) 0.0 x10^3/uL (0.0-0.2) Prothrombin Time 12.8 SEC (11.7-14.0) Prothromb Time International Ratio 1.0 (0.8-1.1) Activated Partial Thromboplast Time 34 SEC (24-38) Sodium Level 139 mmol/L (136-145) Potassium Level 3.5 mmol/L (3.5-5.1) Chloride Level 98 mmol/L (98-107) Carbon Dioxide Level 31 mmol/L (21-32) Anion Gap 10 (6-14) Blood Urea Nitrogen 12 mg/dL (7-20) Creatinine 1.1 mg/dL (0.6-1.0) Estimated GFR (Cockcroft-Gault) 47.4 BUN/Creatinine Ratio 11 (6-20) Glucose Level 125 mg/dL (70-99) Calcium Level 10.2 mg/dL (8.5-10.1) Total Bilirubin 0.6 mg/dL (0.2-1.0) Aspartate Amino Transf (AST/SGOT) 19 U/L (15-37) Alanine Aminotransferase (ALT/SGPT) 16 U/L (14-59) Alkaline Phosphatase 84 U/L (46-116) Total Protein 8.1 g/dL (6.4-8.2) Albumin 3.9 g/dL (3.4-5.0) Albumin/Globulin Ratio 0.9 (1.0-1.7) Lipase 126 U/L (73-393) ASSESSMENT/PLAN ASSESSMENT/PLAN 1. Syncope with nontraumatic fall: suspect vasovagal. Brief episode. 2. Cholelithiasis/melena?; hx of colitis, per GI 3. HTN: controlled 4. Hypothyroidism 5. Murmur Recommendations 1. IVF. Continue home BP meds per BP trend 2. TTE, EKG 3. Place on tele monitor and check rhythm overnight, VIKKI AYON APRN Mar 16, 2018 16:52
[2018-03-16 19:15] VITALS: BP 162/59
[2018-03-16] MEDS ORDERED: CIPROFLOXACIN 400MG PREMIX 200 ML IV SCH (21:00)
[2018-03-16 23:15] VITALS: BP 131/54
[2018-03-17 03:13] VITALS: BP 131/54
[2018-03-17] MEDS: IV NORMAL SALINE 1000ML BAG 1,000 ML IV SCH (03:30)
[2018-03-17 05:04] LABS: BASO % 0 % (0-3); EOS % 0 % (0-3); HEMATOCRIT 37.7 % (36.0-47.0); HEMOGLOBIN 12.9 g/dL (12.0-15.5); LYMPH # 2.5 x10^3/uL (1.0-4.8); LYMPH % 30 % (24-48); MEAN CORPUSCULAR HEMOGLOBIN 30 pg (25-35); MEAN CORPUSCULAR HGB CONC 34 g/dL (31-37); MEAN CORPUSCULAR VOLUME 88 fL (79-100); MONO # 0.9 x10^3/uL (0.0-1.1); MONO % 11 % (0-9); NEUT # 4.8 x10^3uL (1.8-7.7); NEUT % 59 % (31-73); PLATELET COUNT 218 x10^3/uL (140-400); RED BLOOD COUNT 4.28 x10^6/uL (3.50-5.40); RED CELL DISTRIBUTION WIDTH 13.4 % (11.5-14.5); WHITE BLOOD COUNT 8.1 x10^3/uL (4.0-11.0)
[2018-03-17] MEDS: LEVOTHYROXINE 125 MCG TABLET PO SCH (05:31)
[2018-03-17 05:38] LABS: ALBUMIN 2.9 g/dL (3.4-5.0); ALBUMIN/GLOBULIN RATIO 0.9 (1.0-1.7); CALCIUM 8.6 mg/dL (8.5-10.1); CREATININE 0.8 mg/dL (0.6-1.0); GFR 68.5; POTASSIUM 3.3 mmol/L (3.5-5.1); TOTAL BILIRUBIN 0.7 mg/dL (0.2-1.0); TOTAL PROTEIN 6.1 g/dL (6.4-8.2)
[2018-03-17 07:00] VITALS: BP 112/49
[2018-03-17] MEDS: ASPIRIN ENTERIC COATED 81 MG TABLET.DR. PO SCH (08:23)
[2018-03-17] MEDS: amLODIPine BESYLATE 5 MG TABLET PO SCH (08:23)
[2018-03-17] MEDS: hydroCHLOROthiazide 25 MG TABLET PO SCH (08:23)
[2018-03-17] MEDS: MULTIVITAMIN I-VITE TABLET. PO SCH (08:23)
[2018-03-17] MEDS: LISINOPRIL 20 MG TABLET PO SCH (08:24)
[2018-03-17] MEDS: MULTIVITAMIN with MINERAL TABLET. PO SCH (08:24)
[2018-03-17] MEDS: CETIRIZINE HCL 10 MG TABLET. PO SCH (08:24)
[2018-03-17] MEDS ORDERED: NON FORMULARY ITEM (Lisinopril/Hydrochlorothiazide (Lisinopril-Hctz 20-25 Mg Tab) 1 TAB) PO SCH (09:00)
[2018-03-17] MEDS ORDERED: POTASSIUM CHLORIDE 20 MEQ TABLET.ER. PO ONE (10:00)
--- NOTE | 2018-03-17 10:11 | PDOC ---
Subjective: Subjective: Still passing small amounts of "thick" reddish blood, sometimes with stool. Hungry - would like to eat more. Still some abd soreness. Objective: Objective: C Diff not collected. Vital Signs: Vital Signs Date Time Temp Pulse Resp B/P (MAP) Pulse Ox O2 Delivery O2 Flow Rate FiO2 03/17/18 08:24 64 112/49 03/17/18 07:00 98.8 18 95 Room Air 98.8 Labs: Laboratory Tests Test 03/17/18 04:05 White Blood Count 8.1 x10^3/uL Red Blood Count 4.28 x10^6/uL Hemoglobin 12.9 g/dL Hematocrit 37.7 % Mean Corpuscular Volume 88 fL Mean Corpuscular Hemoglobin 30 pg Mean Corpuscular Hemoglobin Concent 34 g/dL Red Cell Distribution Width 13.4 % Platelet Count 218 x10^3/uL Neutrophils (%) (Auto) 59 % Lymphocytes (%) (Auto) 30 % Monocytes (%) (Auto) 11 % Eosinophils (%) (Auto) 0 % Basophils (%) (Auto) 0 % Neutrophils # (Auto) 4.8 x10^3uL Lymphocytes # (Auto) 2.5 x10^3/uL Monocytes # (Auto) 0.9 x10^3/uL Eosinophils # (Auto) 0.0 x10^3/uL Basophils # (Auto) 0.0 x10^3/uL Sodium Level 139 mmol/L Potassium Level 3.3 mmol/L Chloride Level 102 mmol/L Carbon Dioxide Level 26 mmol/L Anion Gap 11 Blood Urea Nitrogen 5 mg/dL Creatinine 0.8 mg/dL Estimated GFR (Cockcroft-Gault) 68.5 BUN/Creatinine Ratio 6 Glucose Level 113 mg/dL Calcium Level 8.6 mg/dL Total Bilirubin 0.7 mg/dL Aspartate Amino Transf (AST/SGOT) 14 U/L Alanine Aminotransferase (ALT/SGPT) 13 U/L Alkaline Phosphatase 69 U/L Total Protein 6.1 g/dL Albumin 2.9 g/dL Albumin/Globulin Ratio 0.9 Imaging: Carotid Doppler (pending) PE: GEN: NAD LUNGS: CTAB HEART: RRR ABD: BS+, soft, vague tenderness NEURO/PSYCH: A & O 3 A/P: Hematochezia - suspect recurrent ischemic colitis, Hgb remains WNL Syncope - cardiology workup in process Cholelithiasis -- Still passing some blood. ?advance diet GARRETT HOLT Mar 17, 2018 10:11
[2018-03-17 11:00] VITALS: BP_SYST 112; BP_SYST 114; BP_SYST 119; BP_SYST 129; BP_DIAS 49; BP_DIAS 53; BP_DIAS 54; BP_DIAS 62
--- NOTE | 2018-03-17 11:59 | CARD ---
MR#: [id number] Date of Study: 03/17/2018 Ordering Physician: ROCIO BOURGEOIS, Referring Physician: ROCIO BOURGEOIS Tech: Isabella Degroot RDCS APPROVED REPORT EXAM: Two-dimensional and M-mode echocardiogram with Doppler and color Doppler. Other Information Quality : Good INDICATION Syncope 2D DIMENSIONS RVDd2.0 (2.9-3.5cm)Left Atrium(2D)3.1 (1.6-4.0cm) IVSd0.9 (0.7-1.1cm)Aortic Root(2D)2.7 (2.0-3.7cm) LVDd4.3 (3.9-5.9cm)LVOT Diameter1.8 (1.8-2.4cm) PWd0.9 (0.7-1.1cm)LVDs2.3 (2.5-4.0cm) FS (%) 30.0 %SV66.1 ml LVEF(%)60.0 (>50%) Aortic Valve AoV Peak Gera.137.2cm/sAoV VTI28.2cm AO Peak GR.7.5mmHgLVOT Peak Gera.109.4cm/s AO Mean GR.4mmHgAVA (VMAX)2.04cm2 HAILEE (VTI)2.20cm2 Mitral Valve MV E Iwwnciyf158.9cm/sMV DECEL YVNH992qh MV A Cdfyavxg80.3cm/sE/A Ratio1.2 Tricuspid Valve TR P. Xkjtclvu862np/sRAP CDGOHBPX1geLe TR Peak Gr.84smJzHRSV60ltWa Pulmonary Vein S1 Xnyuvavc35.6cm/sD2 Sqbipfbt64.5cm/s LEFT VENTRICLE The left ventricle is normal size. There is normal left ventricular wall thickness. The left ventricu lar systolic function is normal and the ejection fraction is within normal range. The Ejection Fracti on is 55-60%. There is normal LV segmental wall motion. Transmitral Doppler flow pattern is Grade I-a bnormal relaxation pattern. RIGHT VENTRICLE The right ventricle is normal size. The right ventricular systolic function is normal. ATRIA The left atrium size is normal. The right atrium size is normal. The interatrial septum is intact wit h no evidence for an atrial septal defect or patent foramen ovale as noted on 2-D or Doppler imaging. AORTIC VALVE The aortic valve is calcified but opens well. Doppler and Color Flow revealed no significant aortic r egurgitation. There is no significant aortic valvular stenosis. MITRAL VALVE The mitral valve is thickened but otherwise opens well. There is no evidence of mitral valve prolapse . There is no mitral valve stenosis. Doppler and Color-flow revealed mild mitral regurgitation. TRICUSPID VALVE The tricuspid valve is normal in structure and function. Doppler and Color Flow revealed trace to mil d tricuspid regurgitation. The PA pressure was estimated at 30 mmHg. There is no tricuspid valve sten osis. PULMONIC VALVE The pulmonic valve is not well visualized. Doppler and Color Flow revealed trace pulmonic valvular re gurgitation. There is no pulmonic valvular stenosis. GREAT VESSELS The aortic root is normal in size. The ascending aorta is normal in size. The IVC is normal in size a nd collapses >50% with inspiration. PERICARDIAL EFFUSION There is no evidence of significant pericardial effusion. Critical Notification Critical Value: No <Conclusion> The left ventricular systolic function is normal and the ejection fraction is within normal range. Th e Ejection Fraction is 55-60%. There is normal LV segmental wall motion. Doppler and Color Flow revealed trace to mild tricuspid regurgitation. The PA pressure was estimated at 30 mmHg. Signed by : Burak Davis, Electronically Approved : 03/17/2018 11:58:36
--- NOTE | 2018-03-17 13:03 | PDOC ---
PROGRESS NOTES Chief Complaint Chief Complaint cholelithiasis possible acute cholecystitis shown on US HTN hypothyroidism recent syncope, vasovagal likely h/o ischemic colitis rectal bleeding as per pt with stable Hb plan: fu with sx dc ivf advance diet to full liquid as per GI resume home po meds , dc amlodipine, still on lisinopril, check orthostatic BP pain control if need dced abx check carotid US, echo, card, gi consult for bloody stool Hb stable tho. t talked to GI, likely can fu as outpt. check cdiff given recent taking abx for "uti" with neg ucx. check fobt echo is ok. dc tmr if no intervention dvt ppx History of Present Illness History of Present Illness ROS: no Fever, chills, sob or chest pain no abd pain ever has mild lower abd tenderness. has loose BM , with some red blood with it as per pt, no abd pain, no rectal pain. said had colonoscopy last year with ischemic colitis but no abd pain at that time too syncoped on a toilet in a restraurant last thursday, N/V after waking up. no abd pain. felt good in ER and went home. with + gallstone in CT NO UTI symptom but abx was given Vitals Vitals Vital Signs Date Time Temp Pulse Resp B/P (MAP) Pulse Ox O2 Delivery O2 Flow Rate FiO2 03/17/18 11:00 98.8 64 18 112/49 (70) 95 Room Air 98.8 Physical Exam General: Alert, Oriented X3, Cooperative, No acute distress Heart: Regular rate (SR), Normal S1, Normal S2, Other (3/6 systolic murmur to LINDA) Abdomen: Soft, Other (lower middle abd mild tenderness) Extremities: No cyanosis, No edema Skin: No breakdown, No significant lesion Labs LABS Laboratory Tests Test 03/17/18 04:05 White Blood Count 8.1 x10^3/uL (4.0-11.0) Red Blood Count 4.28 x10^6/uL (3.50-5.40) Hemoglobin 12.9 g/dL (12.0-15.5) Hematocrit 37.7 % (36.0-47.0) Mean Corpuscular Volume 88 fL (79-100) Mean Corpuscular Hemoglobin 30 pg (25-35) Mean Corpuscular Hemoglobin Concent 34 g/dL (31-37) Red Cell Distribution Width 13.4 % (11.5-14.5) Platelet Count 218 x10^3/uL (140-400) Neutrophils (%) (Auto) 59 % (31-73) Lymphocytes (%) (Auto) 30 % (24-48) Monocytes (%) (Auto) 11 % (0-9) Eosinophils (%) (Auto) 0 % (0-3) Basophils (%) (Auto) 0 % (0-3) Neutrophils # (Auto) 4.8 x10^3uL (1.8-7.7) Lymphocytes # (Auto) 2.5 x10^3/uL (1.0-4.8) Monocytes # (Auto) 0.9 x10^3/uL (0.0-1.1) Eosinophils # (Auto) 0.0 x10^3/uL (0.0-0.7) Basophils # (Auto) 0.0 x10^3/uL (0.0-0.2) Sodium Level 139 mmol/L (136-145) Potassium Level 3.3 mmol/L (3.5-5.1) Chloride Level 102 mmol/L (98-107) Carbon Dioxide Level 26 mmol/L (21-32) Anion Gap 11 (6-14) Blood Urea Nitrogen 5 mg/dL (7-20) Creatinine 0.8 mg/dL (0.6-1.0) Estimated GFR (Cockcroft-Gault) 68.5 BUN/Creatinine Ratio 6 (6-20) Glucose Level 113 mg/dL (70-99) Calcium Level 8.6 mg/dL (8.5-10.1) Total Bilirubin 0.7 mg/dL (0.2-1.0) Aspartate Amino Transf (AST/SGOT) 14 U/L (15-37) Alanine Aminotransferase (ALT/SGPT) 13 U/L (14-59) Alkaline Phosphatase 69 U/L (46-116) Total Protein 6.1 g/dL (6.4-8.2) Albumin 2.9 g/dL (3.4-5.0) Albumin/Globulin Ratio 0.9 (1.0-1.7) Comment Review of Relevant I have reviewed the following items su (where applicable) has been applied. Labs Laboratory Tests Test 03/16/18 08:50 03/17/18 04:05 White Blood Count 9.4 x10^3/uL (4.0-11.0) 8.1 x10^3/uL (4.0-11.0) Red Blood Count 5.09 x10^6/uL (3.50-5.40) 4.28 x10^6/uL (3.50-5.40) Hemoglobin 15.5 g/dL (12.0-15.5) 12.9 g/dL (12.0-15.5) Hematocrit 44.9 % (36.0-47.0) 37.7 % (36.0-47.0) Mean Corpuscular Volume 88 fL (79-100) 88 fL (79-100) Mean Corpuscular Hemoglobin 30 pg (25-35) 30 pg (25-35) Mean Corpuscular Hemoglobin Concent 34 g/dL (31-37) 34 g/dL (31-37) Red Cell Distribution Width 13.5 % (11.5-14.5) 13.4 % (11.5-14.5) Platelet Count 290 x10^3/uL (140-400) 218 x10^3/uL (140-400) Neutrophils (%) (Auto) 62 % (31-73) 59 % (31-73) Lymphocytes (%) (Auto) 29 % (24-48) 30 % (24-48) Monocytes (%) (Auto) 9 % (0-9) 11 % (0-9) Eosinophils (%) (Auto) 0 % (0-3) 0 % (0-3) Basophils (%) (Auto) 0 % (0-3) 0 % (0-3) Neutrophils # (Auto) 5.8 x10^3uL (1.8-7.7) 4.8 x10^3uL (1.8-7.7) Lymphocytes # (Auto) 2.7 x10^3/uL (1.0-4.8) 2.5 x10^3/uL (1.0-4.8) Monocytes # (Auto) 0.8 x10^3/uL (0.0-1.1) 0.9 x10^3/uL (0.0-1.1) Eosinophils # (Auto) 0.0 x10^3/uL (0.0-0.7) 0.0 x10^3/uL (0.0-0.7) Basophils # (Auto) 0.0 x10^3/uL (0.0-0.2) 0.0 x10^3/uL (0.0-0.2) Prothrombin Time 12.8 SEC (11.7-14.0) Prothromb Time International Ratio 1.0 (0.8-1.1) Activated Partial Thromboplast Time 34 SEC (24-38) Sodium Level 139 mmol/L (136-145) 139 mmol/L (136-145) Potassium Level 3.5 mmol/L (3.5-5.1) 3.3 mmol/L (3.5-5.1) Chloride Level 98 mmol/L (98-107) 102 mmol/L (98-107) Carbon Dioxide Level 31 mmol/L (21-32) 26 mmol/L (21-32) Anion Gap 10 (6-14) 11 (6-14) Blood Urea Nitrogen 12 mg/dL (7-20) 5 mg/dL (7-20) Creatinine 1.1 mg/dL (0.6-1.0) 0.8 mg/dL (0.6-1.0) Estimated GFR (Cockcroft-Gault) 47.4 68.5 BUN/Creatinine Ratio 11 (6-20) 6 (6-20) Glucose Level 125 mg/dL (70-99) 113 mg/dL (70-99) Calcium Level 10.2 mg/dL (8.5-10.1) 8.6 mg/dL (8.5-10.1) Total Bilirubin 0.6 mg/dL (0.2-1.0) 0.7 mg/dL (0.2-1.0) Aspartate Amino Transf (AST/SGOT) 19 U/L (15-37) 14 U/L (15-37) Alanine Aminotransferase (ALT/SGPT) 16 U/L (14-59) 13 U/L (14-59) Alkaline Phosphatase 84 U/L (46-116) 69 U/L (46-116) Total Protein 8.1 g/dL (6.4-8.2) 6.1 g/dL (6.4-8.2) Albumin 3.9 g/dL (3.4-5.0) 2.9 g/dL (3.4-5.0) Albumin/Globulin Ratio 0.9 (1.0-1.7) 0.9 (1.0-1.7) Lipase 126 U/L (73-393) Laboratory Tests Test 03/17/18 04:05 White Blood Count 8.1 x10^3/uL (4.0-11.0) Red Blood Count 4.28 x10^6/uL (3.50-5.40) Hemoglobin 12.9 g/dL (12.0-15.5) Hematocrit 37.7 % (36.0-47.0) Mean Corpuscular Volume 88 fL (79-100) Mean Corpuscular Hemoglobin 30 pg (25-35) Mean Corpuscular Hemoglobin Concent 34 g/dL (31-37) Red Cell Distribution Width 13.4 % (11.5-14.5) Platelet Count 218 x10^3/uL (140-400) Neutrophils (%) (Auto) 59 % (31-73) Lymphocytes (%) (Auto) 30 % (24-48) Monocytes (%) (Auto) 11 % (0-9) Eosinophils (%) (Auto) 0 % (0-3) Basophils (%) (Auto) 0 % (0-3) Neutrophils # (Auto) 4.8 x10^3uL (1.8-7.7) Lymphocytes # (Auto) 2.5 x10^3/uL (1.0-4.8) Monocytes # (Auto) 0.9 x10^3/uL (0.0-1.1) Eosinophils # (Auto) 0.0 x10^3/uL (0.0-0.7) Basophils # (Auto) 0.0 x10^3/uL (0.0-0.2) Sodium Level 139 mmol/L (136-145) Potassium Level 3.3 mmol/L (3.5-5.1) Chloride Level 102 mmol/L (98-107) Carbon Dioxide Level 26 mmol/L (21-32) Anion Gap 11 (6-14) Blood Urea Nitrogen 5 mg/dL (7-20) Creatinine 0.8 mg/dL (0.6-1.0) Estimated GFR (Cockcroft-Gault) 68.5 BUN/Creatinine Ratio 6 (6-20) Glucose Level 113 mg/dL (70-99) Calcium Level 8.6 mg/dL (8.5-10.1) Total Bilirubin 0.7 mg/dL (0.2-1.0) Aspartate Amino Transf (AST/SGOT) 14 U/L (15-37) Alanine Aminotransferase (ALT/SGPT) 13 U/L (14-59) Alkaline Phosphatase 69 U/L (46-116) Total Protein 6.1 g/dL (6.4-8.2) Albumin 2.9 g/dL (3.4-5.0) Albumin/Globulin Ratio 0.9 (1.0-1.7) Medications Current Medications Ondansetron HCl (Zofran) 4 mg 1X ONCE IV ; Start 03/16/18 at 08:45; Stop at 08:46; Status DC Sodium Chloride 1,000 ml @ 1,000 mls/hr 1X ONCE IV Last administered on 03/16at 09:11; Start 03/16/18 at 08:45; Stop 03/16/18 at 09:44; Status DC Ondansetron HCl (Zofran) 4 mg PRN Q8HRS PRN IV NAUSEA/VOMITING; Start at 09:15; Stop 03/17/18 at 09:14; Status DC Fentanyl Citrate (Fentanyl 2ml Vial) 50 mcg PRN Q2HR PRN IV PAIN; Start at 09:15; Stop 03/17/18 at 09:14; Status DC Sodium Chloride 1,000 ml @ 75 mls/hr 1X ONCE IV ; Start 03/16/18 at 09:15; Stop 03/16/18 at 22:34; Status DC Ciprofloxacin/ Dextrose 200 ml @ 200 mls/hr Q12HR IV ; Start 03/16/18 at 21:00 ; Stop 03/16/18 at 21:00; Status DC Ciprofloxacin/ Dextrose 200 ml @ 200 mls/hr 1X ONCE IV ; Start 03/16/18 at 09 :30; Stop 03/16/18 at 10:29; Status DC Bupivacaine HCl/ Epinephrine Bitart (Marcaine-Epi 0.5%-[id number]) 50 ml STK-MED ONCE .ROUTE ; Start 03/16/18 at 11:23; Stop 03/16/18 at 12:23; Status DC Cellulose (Surgicel Hemostat 2x3) 1 each STK-MED ONCE .ROUTE ; Start 03/16/18 at 11:23; Stop 03/16/18 at 12:23; Status DC Iohexol (Omnipaque 300 Mg/ml) 100 ml STK-MED ONCE .ROUTE ; Start 03/16/18 at 11 :23; Stop 03/16/18 at 12:23; Status DC Bisacodyl (Dulcolax Supp) 10 mg STK-MED ONCE .ROUTE ; Start 03/16/18 at 11:23; Stop 03/16/18 at 12:23; Status DC Fentanyl Citrate (Fentanyl 2ml Vial) 25 mcg PRN Q5MIN PRN IV MILD PAIN; Start 03/16/18 at 12:45; Stop 03/17/18 at 12:44; Status DC Fentanyl Citrate (Fentanyl 2ml Vial) 50 mcg PRN Q5MIN PRN IV MODERATE TO SEVERE PAIN; Start 03/16/18 at 12:45; Stop 03/17/18 at 12:44; Status DC Morphine Sulfate (Morphine Sulfate) 1 mg PRN Q10MIN PRN IV SEVERE PAIN; Start 03/16/18 at 12:45; Stop 03/17/18 at 12:44; Status DC Ringer's Solution 1,000 ml @ 30 mls/hr Q24H IV ; Start 03/16/18 at 12:37; Stop 03/17/18 at 00:36; Status DC Lidocaine HCl (Xylocaine-Mpf 1% 2ml Vial) 2 ml PRN 1X PRN ID PRIOR TO IV START ; Start 03/16/18 at 12:45; Stop 03/17/18 at 12:44; Status DC Hydromorphone HCl (Dilaudid) 0.5 mg PRN Q10MIN PRN IV SEV PAIN, Second choice; Start 03/16/18 at 12:45; Stop 03/17/18 at 12:44; Status DC Prochlorperazine Edisylate (Compazine) 5 mg PACU PRN PRN IV NAUSEA, MRX1; Start 03/16/18 at 12:45; Stop 03/17/18 at 12:44; Status DC Amlodipine Besylate (Norvasc) 5 mg DAILY PO Last administered on 03/17/18 08: 23; Start 03/16/18 at 14:00 Aspirin (Ecotrin) 81 mg DAILY PO Last administered on 03/17/18 08:23; Start 03/16/18 at 14:00 Cetirizine HCl (ZyrTEC) 10 mg DAILY PO Last administered on 03/17/18 08:24; Start 03/16/18 at 14:00 Levothyroxine Sodium (Synthroid) 125 mcg DAILY06 PO Last administered on 05:31; Start 03/16/18 at 14:00 Non-Formulary Medication (Lisinopril/ Hydrochlorothiazide (Lisinopril-Hctz 20- 25 Mg Tab)) 1 tab DAILY PO ; Start 03/17/18 at 09:00; Status UNV Multivitamins (Thera M Plus) 1 tab DAILY PO Last administered on 03/17/18 08: 24; Start 03/16/18 at 14:00 Multivitamins/ Minerals (I-Traci) 1 tab DAILY PO Last administered on 08:23; Start 03/16/18 at 14:00 Sodium Chloride 1,000 ml @ 75 mls/hr [id number] IV Last administered on 03:30; Start 03/16/18 at 14:00 Lisinopril (Prinivil) 20 mg DAILY PO Last administered on 03/17/18 08:24; Start 03/16/18 at 14:00 Hydrochlorothiazide (Hydrodiuril) 25 mg DAILY PO Last administered on at 08:23; Start 03/16/18 at 14:00 Acetaminophen (Tylenol) 650 mg PRN Q6HRS PRN PO FEVER; Start 03/16/18 at 14:00 Ondansetron HCl (Zofran) 4 mg PRN Q6HRS PRN IV NAUSEA/VOMITING; Start at 14:00 Morphine Sulfate (Morphine Sulfate) 2 mg PRN Q2HR PRN IV MODERATE TO SEVERE PAIN; Start 03/16/18 at 14:00 Tramadol HCl (Ultram) 50 mg PRN Q6HRS PRN PO MILD TO MODERATE PAIN; Start at 14:00 Docusate Sodium (Colace) 100 mg PRN DAILY PRN PO CONSTIPATION; Start 03/16/18 at 14:00 Potassium Chloride (Klor-Con) 40 meq 1X ONCE PO Last administered on at 09:51; Start 03/17/18 at 10:00; Stop 03/17/18 at 10:01; Status DC Active Scripts Active Reported Amlodipine Besylate 5 Mg Tablet 5 Mg PO DAILY Zyrtec (Cetirizine Hcl) 10 Mg Tablet 1 Tab PO DAILY Aspirin Ec (Aspirin) 81 Mg Tablet.dr 1 Tab PO DAILY Centrum Silver Women Tablet (Multivits-Min/Iron/FA/Lutein) 1 Each Tablet 1 Each PO DAILY Calcium + Vitamin D Tablet (Calcium Carbonate/Vitamin D3) 1 Each Tablet 1 Each PO Preservision Areds Tablet (Vit A/Vit C/Vit E/Zinc/Copper) 1 Each Tablet 1 Each PO BID Levothyroxine Sodium 125 Mcg Tablet 1 Tab PO DAILY Lisinopril-Hctz 20-25 Mg Tab (Lisinopril/Hydrochlorothiazide) 1 Each Tablet 1 Tab PO DAILY Vitals/I & O Vital Sign - Last 24 Hours 03/16/18 03/16/18 03/16/18 03/16/18 15:00 19:15 20:00 23:15 Temp 98.1 98.1 98.3 98.1 98.1 98.3 Pulse 69 74 70 Resp 16 18 18 B/P (MAP) 148/54 (85) 162/59 (93) 131/54 (79) Pulse Ox 98 95 93 O2 Delivery Room Air Room Air Room Air Room Air 03/17/18 03/17/18 03/17/18 03/17/18 03:13 07:00 07:15 08:23 Temp 99.0 98.8 99.0 98.8 Pulse 68 64 64 Resp 18 18 B/P (MAP) 131/54 (79) 112/49 (70) 112/49 Pulse Ox 92 95 O2 Delivery Room Air Room Air Room Air 03/17/18 03/17/18 08:24 11:00 Temp 98.8 98.8 Pulse 64 64 Resp 18 B/P (MAP) 112/49 112/49 (70) Pulse Ox 95 O2 Delivery Room Air Intake and Output 10/03/16/18 03/17/18 15:00 23:00 07:00 Intake Total 1146 ml Balance 1146 ml ROCIO BOURGEOIS MD Mar 17, 2018 13:02
--- NOTE | 2018-03-17 14:08 | PDOC ---
CARDIO Progress Notes Date and Time Date of Service 03/17/2018 Time of Evaluation 1400 Subjective Subjective: No Chest Pain, No shortness of breath, No Palpitations Vitals Vitals Vital Signs Date Time Temp Pulse Resp B/P (MAP) Pulse Ox O2 Delivery O2 Flow Rate FiO2 03/17/18 11:00 98.8 64 18 112/49 (70) 95 Room Air 98.8 Weight Weight [ ] Input and Output Intake and Output Intake and Output 03/17/18 07:00 Intake Total 1146 ml Balance 1146 ml Intake Oral 480 ml IV Total 666 ml # Voids 2 Laboratory Labs Laboratory Tests Test 03/17/18 04:05 White Blood Count 8.1 x10^3/uL (4.0-11.0) Red Blood Count 4.28 x10^6/uL (3.50-5.40) Hemoglobin 12.9 g/dL (12.0-15.5) Hematocrit 37.7 % (36.0-47.0) Mean Corpuscular Volume 88 fL (79-100) Mean Corpuscular Hemoglobin 30 pg (25-35) Mean Corpuscular Hemoglobin Concent 34 g/dL (31-37) Red Cell Distribution Width 13.4 % (11.5-14.5) Platelet Count 218 x10^3/uL (140-400) Neutrophils (%) (Auto) 59 % (31-73) Lymphocytes (%) (Auto) 30 % (24-48) Monocytes (%) (Auto) 11 % (0-9) Eosinophils (%) (Auto) 0 % (0-3) Basophils (%) (Auto) 0 % (0-3) Neutrophils # (Auto) 4.8 x10^3uL (1.8-7.7) Lymphocytes # (Auto) 2.5 x10^3/uL (1.0-4.8) Monocytes # (Auto) 0.9 x10^3/uL (0.0-1.1) Eosinophils # (Auto) 0.0 x10^3/uL (0.0-0.7) Basophils # (Auto) 0.0 x10^3/uL (0.0-0.2) Sodium Level 139 mmol/L (136-145) Potassium Level 3.3 mmol/L (3.5-5.1) Chloride Level 102 mmol/L (98-107) Carbon Dioxide Level 26 mmol/L (21-32) Anion Gap 11 (6-14) Blood Urea Nitrogen 5 mg/dL (7-20) Creatinine 0.8 mg/dL (0.6-1.0) Estimated GFR (Cockcroft-Gault) 68.5 BUN/Creatinine Ratio 6 (6-20) Glucose Level 113 mg/dL (70-99) Calcium Level 8.6 mg/dL (8.5-10.1) Total Bilirubin 0.7 mg/dL (0.2-1.0) Aspartate Amino Transf (AST/SGOT) 14 U/L (15-37) Alanine Aminotransferase (ALT/SGPT) 13 U/L (14-59) Alkaline Phosphatase 69 U/L (46-116) Total Protein 6.1 g/dL (6.4-8.2) Albumin 2.9 g/dL (3.4-5.0) Albumin/Globulin Ratio 0.9 (1.0-1.7) Physical Exam HEENT: Neck Supple W Full Motion Chest: Symmetric LUNGS: Clear to Auscultation Heart: S1S2, RRR (SR with no rhythm ectopies) Abdomen: Soft N/T Extremities: No Edema, No Calf Tenderness Neurology: alert, oriented, follow commands Assessment Assessment 1. Vasovagal Syncope with nontraumatic fall: No orthostasis. No rhythm ectopies overnight. EF and WM nml. 2. Cholelithiasis/possible ischemic colitis per GI 3. HTN: controlled 4. Hypothyroidism 5. Mild MR/TR Recommendations 1. Nothing further at this time. Pls call if any questions 2. If surgery is planned, low risk for CV events for noncardiac surgery VIKKI AYON APRN Mar 17, 2018 14:08
--- NOTE | 2018-03-17 14:11 | PDOC ---
SURGICAL PROGRESS NOTE Subjective Pt denies c/o, most recent stool did not have blood in it. Cardiac w/u ongoing Vital Signs Vital Signs Date Time Temp Pulse Resp B/P (MAP) Pulse Ox O2 Delivery O2 Flow Rate FiO2 03/17/18 11:00 98.8 64 18 112/49 (70) 95 Room Air 98.8 I&O Intake and Output 03/17/18 07:00 Intake Total 1146 ml Balance 1146 ml Intake Oral 480 ml IV Total 666 ml # Voids 2 General: Alert, Oriented X3, Cooperative, No acute distress Abdomen: Soft, No tenderness Labs Laboratory Tests Test 03/16/18 08:50 03/17/18 04:05 White Blood Count 9.4 x10^3/uL (4.0-11.0) 8.1 x10^3/uL (4.0-11.0) Red Blood Count 5.09 x10^6/uL (3.50-5.40) 4.28 x10^6/uL (3.50-5.40) Hemoglobin 15.5 g/dL (12.0-15.5) 12.9 g/dL (12.0-15.5) Hematocrit 44.9 % (36.0-47.0) 37.7 % (36.0-47.0) Mean Corpuscular Volume 88 fL (79-100) 88 fL (79-100) Mean Corpuscular Hemoglobin 30 pg (25-35) 30 pg (25-35) Mean Corpuscular Hemoglobin Concent 34 g/dL (31-37) 34 g/dL (31-37) Red Cell Distribution Width 13.5 % (11.5-14.5) 13.4 % (11.5-14.5) Platelet Count 290 x10^3/uL (140-400) 218 x10^3/uL (140-400) Neutrophils (%) (Auto) 62 % (31-73) 59 % (31-73) Lymphocytes (%) (Auto) 29 % (24-48) 30 % (24-48) Monocytes (%) (Auto) 9 % (0-9) 11 % (0-9) Eosinophils (%) (Auto) 0 % (0-3) 0 % (0-3) Basophils (%) (Auto) 0 % (0-3) 0 % (0-3) Neutrophils # (Auto) 5.8 x10^3uL (1.8-7.7) 4.8 x10^3uL (1.8-7.7) Lymphocytes # (Auto) 2.7 x10^3/uL (1.0-4.8) 2.5 x10^3/uL (1.0-4.8) Monocytes # (Auto) 0.8 x10^3/uL (0.0-1.1) 0.9 x10^3/uL (0.0-1.1) Eosinophils # (Auto) 0.0 x10^3/uL (0.0-0.7) 0.0 x10^3/uL (0.0-0.7) Basophils # (Auto) 0.0 x10^3/uL (0.0-0.2) 0.0 x10^3/uL (0.0-0.2) Prothrombin Time 12.8 SEC (11.7-14.0) Prothromb Time International Ratio 1.0 (0.8-1.1) Activated Partial Thromboplast Time 34 SEC (24-38) Sodium Level 139 mmol/L (136-145) 139 mmol/L (136-145) Potassium Level 3.5 mmol/L (3.5-5.1) 3.3 mmol/L (3.5-5.1) Chloride Level 98 mmol/L (98-107) 102 mmol/L (98-107) Carbon Dioxide Level 31 mmol/L (21-32) 26 mmol/L (21-32) Anion Gap 10 (6-14) 11 (6-14) Blood Urea Nitrogen 12 mg/dL (7-20) 5 mg/dL (7-20) Creatinine 1.1 mg/dL (0.6-1.0) 0.8 mg/dL (0.6-1.0) Estimated GFR (Cockcroft-Gault) 47.4 68.5 BUN/Creatinine Ratio 11 (6-20) 6 (6-20) Glucose Level 125 mg/dL (70-99) 113 mg/dL (70-99) Calcium Level 10.2 mg/dL (8.5-10.1) 8.6 mg/dL (8.5-10.1) Total Bilirubin 0.6 mg/dL (0.2-1.0) 0.7 mg/dL (0.2-1.0) Aspartate Amino Transf (AST/SGOT) 19 U/L (15-37) 14 U/L (15-37) Alanine Aminotransferase (ALT/SGPT) 16 U/L (14-59) 13 U/L (14-59) Alkaline Phosphatase 84 U/L (46-116) 69 U/L (46-116) Total Protein 8.1 g/dL (6.4-8.2) 6.1 g/dL (6.4-8.2) Albumin 3.9 g/dL (3.4-5.0) 2.9 g/dL (3.4-5.0) Albumin/Globulin Ratio 0.9 (1.0-1.7) 0.9 (1.0-1.7) Lipase 126 U/L (73-393) Laboratory Tests Test 03/17/18 04:05 White Blood Count 8.1 x10^3/uL (4.0-11.0) Red Blood Count 4.28 x10^6/uL (3.50-5.40) Hemoglobin 12.9 g/dL (12.0-15.5) Hematocrit 37.7 % (36.0-47.0) Mean Corpuscular Volume 88 fL (79-100) Mean Corpuscular Hemoglobin 30 pg (25-35) Mean Corpuscular Hemoglobin Concent 34 g/dL (31-37) Red Cell Distribution Width 13.4 % (11.5-14.5) Platelet Count 218 x10^3/uL (140-400) Neutrophils (%) (Auto) 59 % (31-73) Lymphocytes (%) (Auto) 30 % (24-48) Monocytes (%) (Auto) 11 % (0-9) Eosinophils (%) (Auto) 0 % (0-3) Basophils (%) (Auto) 0 % (0-3) Neutrophils # (Auto) 4.8 x10^3uL (1.8-7.7) Lymphocytes # (Auto) 2.5 x10^3/uL (1.0-4.8) Monocytes # (Auto) 0.9 x10^3/uL (0.0-1.1) Eosinophils # (Auto) 0.0 x10^3/uL (0.0-0.7) Basophils # (Auto) 0.0 x10^3/uL (0.0-0.2) Sodium Level 139 mmol/L (136-145) Potassium Level 3.3 mmol/L (3.5-5.1) Chloride Level 102 mmol/L (98-107) Carbon Dioxide Level 26 mmol/L (21-32) Anion Gap 11 (6-14) Blood Urea Nitrogen 5 mg/dL (7-20) Creatinine 0.8 mg/dL (0.6-1.0) Estimated GFR (Cockcroft-Gault) 68.5 BUN/Creatinine Ratio 6 (6-20) Glucose Level 113 mg/dL (70-99) Calcium Level 8.6 mg/dL (8.5-10.1) Total Bilirubin 0.7 mg/dL (0.2-1.0) Aspartate Amino Transf (AST/SGOT) 14 U/L (15-37) Alanine Aminotransferase (ALT/SGPT) 13 U/L (14-59) Alkaline Phosphatase 69 U/L (46-116) Total Protein 6.1 g/dL (6.4-8.2) Albumin 2.9 g/dL (3.4-5.0) Albumin/Globulin Ratio 0.9 (1.0-1.7) Problem List ischemic colitis agree with plans per GI and cards will not plan lap michelle currently, as pt without symptoms pt encouraged to f/u if develops sx Will sign off, but please call for questions. NICK GODDARD MD Mar 17, 2018 14:11
[2018-03-17 15:00] VITALS: BP 119/80
[2018-03-17 19:00] VITALS: BP 116/53
[2018-03-18 07:00] VITALS: BP 123/52
[2018-03-18] MEDS: LEVOTHYROXINE 125 MCG TABLET PO SCH (07:15)
--- NOTE | 2018-03-18 07:47 | PDOC ---
PROGRESS NOTES Chief Complaint Chief Complaint Cholelithiasis possible acute cholecystitis shown on US HTN hypothyroidism recent syncope, vasovagal likely h/o ischemic colitis rectal bleeding as per pt with stable Hb History of Present Illness History of Present Illness syncoped on a toilet in a [employer] last thursday, N/V after waking up. no abd pain. felt good in ER and went home. with + gallstone in CT NO UTI symptom but abx was given no abd pain ever has mild lower abd tenderness. has loose BM , with some red blood with it as per pt, no abd pain, no rectal pain. said had colonoscopy last year with ischemic colitis but no abd pain at that time too ROS: no Fever, chills, sob or chest pain plan: fu with sx dc ivf advance diet to full liquid as per GI resume home po meds , dc amlodipine, still on lisinopril, checked orthostatic BP pain control if need dced abx checked carotid US, echo, card, gi consult for bloody stool Hb stable tho. t talked to GI, likely can fu as outpt. check cdiff given recent taking abx for "uti" with neg ucx. check fobt echo is ok. dc tmr if no intervention dvt ppx Vitals Vitals Vital Signs Date Time Temp Pulse Resp B/P (MAP) Pulse Ox O2 Delivery O2 Flow Rate FiO2 03/17/18 20:00 Room Air 03/17/18 19:00 97.8 64 18 116/53 (74) 94 97.8 Physical Exam General: Alert, Oriented X3, Cooperative, No acute distress Heart: Regular rate (SR), Normal S1, Normal S2, Other (3/6 systolic murmur to LINDA) Abdomen: Soft, No tenderness Extremities: No cyanosis, No edema Skin: No breakdown, No significant lesion Comment Review of Relevant I have reviewed the following items su (where applicable) has been applied. Labs Laboratory Tests Test 03/16/18 08:50 03/17/18 04:05 White Blood Count 9.4 x10^3/uL (4.0-11.0) 8.1 x10^3/uL (4.0-11.0) Red Blood Count 5.09 x10^6/uL (3.50-5.40) 4.28 x10^6/uL (3.50-5.40) Hemoglobin 15.5 g/dL (12.0-15.5) 12.9 g/dL (12.0-15.5) Hematocrit 44.9 % (36.0-47.0) 37.7 % (36.0-47.0) Mean Corpuscular Volume 88 fL (79-100) 88 fL (79-100) Mean Corpuscular Hemoglobin 30 pg (25-35) 30 pg (25-35) Mean Corpuscular Hemoglobin Concent 34 g/dL (31-37) 34 g/dL (31-37) Red Cell Distribution Width 13.5 % (11.5-14.5) 13.4 % (11.5-14.5) Platelet Count 290 x10^3/uL (140-400) 218 x10^3/uL (140-400) Neutrophils (%) (Auto) 62 % (31-73) 59 % (31-73) Lymphocytes (%) (Auto) 29 % (24-48) 30 % (24-48) Monocytes (%) (Auto) 9 % (0-9) 11 % (0-9) Eosinophils (%) (Auto) 0 % (0-3) 0 % (0-3) Basophils (%) (Auto) 0 % (0-3) 0 % (0-3) Neutrophils # (Auto) 5.8 x10^3uL (1.8-7.7) 4.8 x10^3uL (1.8-7.7) Lymphocytes # (Auto) 2.7 x10^3/uL (1.0-4.8) 2.5 x10^3/uL (1.0-4.8) Monocytes # (Auto) 0.8 x10^3/uL (0.0-1.1) 0.9 x10^3/uL (0.0-1.1) Eosinophils # (Auto) 0.0 x10^3/uL (0.0-0.7) 0.0 x10^3/uL (0.0-0.7) Basophils # (Auto) 0.0 x10^3/uL (0.0-0.2) 0.0 x10^3/uL (0.0-0.2) Prothrombin Time 12.8 SEC (11.7-14.0) Prothromb Time International Ratio 1.0 (0.8-1.1) Activated Partial Thromboplast Time 34 SEC (24-38) Sodium Level 139 mmol/L (136-145) 139 mmol/L (136-145) Potassium Level 3.5 mmol/L (3.5-5.1) 3.3 mmol/L (3.5-5.1) Chloride Level 98 mmol/L (98-107) 102 mmol/L (98-107) Carbon Dioxide Level 31 mmol/L (21-32) 26 mmol/L (21-32) Anion Gap 10 (6-14) 11 (6-14) Blood Urea Nitrogen 12 mg/dL (7-20) 5 mg/dL (7-20) Creatinine 1.1 mg/dL (0.6-1.0) 0.8 mg/dL (0.6-1.0) Estimated GFR (Cockcroft-Gault) 47.4 68.5 BUN/Creatinine Ratio 11 (6-20) 6 (6-20) Glucose Level 125 mg/dL (70-99) 113 mg/dL (70-99) Calcium Level 10.2 mg/dL (8.5-10.1) 8.6 mg/dL (8.5-10.1) Total Bilirubin 0.6 mg/dL (0.2-1.0) 0.7 mg/dL (0.2-1.0) Aspartate Amino Transf (AST/SGOT) 19 U/L (15-37) 14 U/L (15-37) Alanine Aminotransferase (ALT/SGPT) 16 U/L (14-59) 13 U/L (14-59) Alkaline Phosphatase 84 U/L (46-116) 69 U/L (46-116) Total Protein 8.1 g/dL (6.4-8.2) 6.1 g/dL (6.4-8.2) Albumin 3.9 g/dL (3.4-5.0) 2.9 g/dL (3.4-5.0) Albumin/Globulin Ratio 0.9 (1.0-1.7) 0.9 (1.0-1.7) Lipase 126 U/L (73-393) Medications Current Medications Ondansetron HCl (Zofran) 4 mg 1X ONCE IV ; Start 03/16/18 at 08:45; Stop at 08:46; Status DC Sodium Chloride 1,000 ml @ 1,000 mls/hr 1X ONCE IV Last administered on 03/16at 09:11; Start 03/16/18 at 08:45; Stop 03/16/18 at 09:44; Status DC Ondansetron HCl (Zofran) 4 mg PRN Q8HRS PRN IV NAUSEA/VOMITING; Start at 09:15; Stop 03/17/18 at 09:14; Status DC Fentanyl Citrate (Fentanyl 2ml Vial) 50 mcg PRN Q2HR PRN IV PAIN; Start at 09:15; Stop 03/17/18 at 09:14; Status DC Sodium Chloride 1,000 ml @ 75 mls/hr 1X ONCE IV ; Start 03/16/18 at 09:15; Stop 03/16/18 at 22:34; Status DC Ciprofloxacin/ Dextrose 200 ml @ 200 mls/hr Q12HR IV ; Start 03/16/18 at 21:00 ; Stop 03/16/18 at 21:00; Status DC Ciprofloxacin/ Dextrose 200 ml @ 200 mls/hr 1X ONCE IV ; Start 03/16/18 at 09 :30; Stop 03/16/18 at 10:29; Status DC Bupivacaine HCl/ Epinephrine Bitart (Marcaine-Epi 0.5%-[id number]) 50 ml STK-MED ONCE .ROUTE ; Start 03/16/18 at 11:23; Stop 03/16/18 at 12:23; Status DC Cellulose (Surgicel Hemostat 2x3) 1 each STK-MED ONCE .ROUTE ; Start 03/16/18 at 11:23; Stop 03/16/18 at 12:23; Status DC Iohexol (Omnipaque 300 Mg/ml) 100 ml STK-MED ONCE .ROUTE ; Start 03/16/18 at 11 :23; Stop 03/16/18 at 12:23; Status DC Bisacodyl (Dulcolax Supp) 10 mg STK-MED ONCE .ROUTE ; Start 03/16/18 at 11:23; Stop 03/16/18 at 12:23; Status DC Fentanyl Citrate (Fentanyl 2ml Vial) 25 mcg PRN Q5MIN PRN IV MILD PAIN; Start 03/16/18 at 12:45; Stop 03/17/18 at 12:44; Status DC Fentanyl Citrate (Fentanyl 2ml Vial) 50 mcg PRN Q5MIN PRN IV MODERATE TO SEVERE PAIN; Start 03/16/18 at 12:45; Stop 03/17/18 at 12:44; Status DC Morphine Sulfate (Morphine Sulfate) 1 mg PRN Q10MIN PRN IV SEVERE PAIN; Start 03/16/18 at 12:45; Stop 03/17/18 at 12:44; Status DC Ringer's Solution 1,000 ml @ 30 mls/hr Q24H IV ; Start 03/16/18 at 12:37; Stop 03/17/18 at 00:36; Status DC Lidocaine HCl (Xylocaine-Mpf 1% 2ml Vial) 2 ml PRN 1X PRN ID PRIOR TO IV START ; Start 03/16/18 at 12:45; Stop 03/17/18 at 12:44; Status DC Hydromorphone HCl (Dilaudid) 0.5 mg PRN Q10MIN PRN IV SEV PAIN, Second choice; Start 03/16/18 at 12:45; Stop 03/17/18 at 12:44; Status DC Prochlorperazine Edisylate (Compazine) 5 mg PACU PRN PRN IV NAUSEA, MRX1; Start 03/16/18 at 12:45; Stop 03/17/18 at 12:44; Status DC Amlodipine Besylate (Norvasc) 5 mg DAILY PO Last administered on 03/17/18at 08: 23; Start 03/16/18 at 14:00; Stop 03/17/18 at 12:57; Status DC Aspirin (Ecotrin) 81 mg DAILY PO Last administered on 03/17/18at 08:23; Start 03/16/18 at 14:00 Cetirizine HCl (ZyrTEC) 10 mg DAILY PO Last administered on 03/17/18at 08:24; Start 03/16/18 at 14:00 Levothyroxine Sodium (Synthroid) 125 mcg DAILY06 PO Last administered on at 07:15; Start 03/16/18 at 14:00 Non-Formulary Medication (Lisinopril/ Hydrochlorothiazide (Lisinopril-Hctz 20- 25 Mg Tab)) 1 tab DAILY PO ; Start 03/17/18 at 09:00; Status UNV Multivitamins (Thera M Plus) 1 tab DAILY PO Last administered on 03/17/18at 08: 24; Start 03/16/18 at 14:00 Multivitamins/ Minerals (I-Traci) 1 tab DAILY PO Last administered on at 08:23; Start 03/16/18 at 14:00 Sodium Chloride 1,000 ml @ 75 mls/hr [id number] IV Last administered on at 03:30; Start 03/16/18 at 14:00; Stop 03/17/18 at 12:57; Status DC Lisinopril (Prinivil) 20 mg DAILY PO Last administered on 03/17/18at 08:24; Start 03/16/18 at 14:00 Hydrochlorothiazide (Hydrodiuril) 25 mg DAILY PO Last administered on at 08:23; Start 03/16/18 at 14:00; Stop 03/17/18 at 13:03; Status DC Acetaminophen (Tylenol) 650 mg PRN Q6HRS PRN PO FEVER; Start 03/16/18 at 14:00 Ondansetron HCl (Zofran) 4 mg PRN Q6HRS PRN IV NAUSEA/VOMITING; Start at 14:00 Morphine Sulfate (Morphine Sulfate) 2 mg PRN Q2HR PRN IV MODERATE TO SEVERE PAIN; Start 03/16/18 at 14:00 Tramadol HCl (Ultram) 50 mg PRN Q6HRS PRN PO MILD TO MODERATE PAIN; Start at 14:00 Docusate Sodium (Colace) 100 mg PRN DAILY PRN PO CONSTIPATION; Start 03/16/18 at 14:00 Potassium Chloride (Klor-Con) 40 meq 1X ONCE PO Last administered on at 09:51; Start 03/17/18 at 10:00; Stop 03/17/18 at 10:01; Status DC Active Scripts Active Reported Amlodipine Besylate 5 Mg Tablet 5 Mg PO DAILY Zyrtec (Cetirizine Hcl) 10 Mg Tablet 1 Tab PO DAILY Aspirin Ec (Aspirin) 81 Mg Tablet.dr 1 Tab PO DAILY Centrum Silver Women Tablet (Multivits-Min/Iron/FA/Lutein) 1 Each Tablet 1 Each PO DAILY Calcium + Vitamin D Tablet (Calcium Carbonate/Vitamin D3) 1 Each Tablet 1 Each PO Preservision Areds Tablet (Vit A/Vit C/Vit E/Zinc/Copper) 1 Each Tablet 1 Each PO BID Levothyroxine Sodium 125 Mcg Tablet 1 Tab PO DAILY Lisinopril-Hctz 20-25 Mg Tab (Lisinopril/Hydrochlorothiazide) 1 Each Tablet 1 Tab PO DAILY Vitals/I & O Vital Sign - Last 24 Hours 03/17/18 03/17/18 03/17/18 03/17/18 08:23 08:24 11:00 11:00 Pulse 64 64 66 71 Resp 18 18 B/P (MAP) 112/49 112/49 129/54 (79) 119/62 (81) Pulse Ox 97 97 O2 Delivery Room Air Room Air 03/17/18 03/17/18 03/17/18 03/17/18 11:00 11:00 15:00 19:00 Temp 98.8 97.1 97.8 98.8 97.1 97.8 Pulse 59 64 69 64 Resp 59 18 18 18 B/P (MAP) 114/53 (73) 112/49 (70) 119/80 (93) 116/53 (74) Pulse Ox 93 95 95 94 O2 Delivery Room Air Room Air Room Air Room Air 03/17/18 20:00 O2 Delivery Room Air Intake and Output 03/17/18 03/17/18 03/18/18 15:00 23:00 07:00 Intake Total 0 ml 220 ml 200 ml Balance 0 ml 220 ml 200 ml JB CHAU MD Mar 18, 2018 07:47
[2018-03-18 08:04] LABS: BASO % 0 % (0-3); EOS % 0 % (0-3); HEMATOCRIT 39.4 % (36.0-47.0); HEMOGLOBIN 13.4 g/dL (12.0-15.5); LYMPH # 1.9 x10^3/uL (1.0-4.8); LYMPH % 31 % (24-48); MEAN CORPUSCULAR HEMOGLOBIN 30 pg (25-35); MEAN CORPUSCULAR HGB CONC 34 g/dL (31-37); MEAN CORPUSCULAR VOLUME 89 fL (79-100); MONO # 0.6 x10^3/uL (0.0-1.1); MONO % 10 % (0-9); NEUT # 3.6 x10^3uL (1.8-7.7); NEUT % 59 % (31-73); PLATELET COUNT 201 x10^3/uL (140-400); RED BLOOD COUNT 4.45 x10^6/uL (3.50-5.40); RED CELL DISTRIBUTION WIDTH 13.7 % (11.5-14.5); WHITE BLOOD COUNT 6.2 x10^3/uL (4.0-11.0)
[2018-03-18 08:14] LABS: CALCIUM 9.1 mg/dL (8.5-10.1); CREATININE 0.8 mg/dL (0.6-1.0); GFR 68.5; POTASSIUM 3.8 mmol/L (3.5-5.1)
[2018-03-18] MEDS: MULTIVITAMIN I-VITE TABLET. PO SCH (09:26)
[2018-03-18] MEDS: CETIRIZINE HCL 10 MG TABLET. PO SCH (09:27)
[2018-03-18] MEDS: ASPIRIN ENTERIC COATED 81 MG TABLET.DR. PO SCH (09:27)
[2018-03-18] MEDS: MULTIVITAMIN with MINERAL TABLET. PO SCH (09:27)
[2018-03-18] MEDS: LISINOPRIL 20 MG TABLET PO SCH (09:27)
[2018-03-18 11:00] VITALS: BP 131/41
--- NOTE | 2018-03-18 11:17 | PDOC ---
Subjective: Subjective: Wants to go home. Has stooled several times since we saw yesterday - no blood. Tolerating full liquids, hungry. Wants to know if she should follow a special diet for gallstones. Objective: Vital Signs: Vital Signs Date Time Temp Pulse Resp B/P (MAP) Pulse Ox O2 Delivery O2 Flow Rate FiO2 03/18/18 09:27 61 123/52 03/18/18 07:00 97.9 18 97 Room Air 97.9 Labs: Laboratory Tests Test 03/18/18 07:35 White Blood Count 6.2 x10^3/uL Red Blood Count 4.45 x10^6/uL Hemoglobin 13.4 g/dL Hematocrit 39.4 % Mean Corpuscular Volume 89 fL Mean Corpuscular Hemoglobin 30 pg Mean Corpuscular Hemoglobin Concent 34 g/dL Red Cell Distribution Width 13.7 % Platelet Count 201 x10^3/uL Neutrophils (%) (Auto) 59 % Lymphocytes (%) (Auto) 31 % Monocytes (%) (Auto) 10 % Eosinophils (%) (Auto) 0 % Basophils (%) (Auto) 0 % Neutrophils # (Auto) 3.6 x10^3uL Lymphocytes # (Auto) 1.9 x10^3/uL Monocytes # (Auto) 0.6 x10^3/uL Eosinophils # (Auto) 0.0 x10^3/uL Basophils # (Auto) 0.0 x10^3/uL Sodium Level 137 mmol/L Potassium Level 3.8 mmol/L Chloride Level 100 mmol/L Carbon Dioxide Level 28 mmol/L Anion Gap 9 Blood Urea Nitrogen 6 mg/dL Creatinine 0.8 mg/dL Estimated GFR (Cockcroft-Gault) 68.5 Glucose Level 99 mg/dL Calcium Level 9.1 mg/dL Imaging: Echocardiogram <Conclusion> The left ventricular systolic function is normal and the ejection fraction is within normal range. The Ejection Fraction is 55-60%. There is normal LV segmental wall motion. Doppler and Color Flow revealed trace to mild tricuspid regurgitation. The PA pressure was estimated at 30 mmHg. PE: GEN: NAD LUNGS: CTAB HEART: RRR ABD: S/ND/NT NEURO/PSYCH: A & O 3 A/P: Hematochezia - resolved, likely recurrent ischemic colitis -- HECTOR SORENSON per primary. GARRETT HOLT Mar 18, 2018 11:17
--- NOTE | 2018-03-18 11:40 | PDOC3 ---
Discharge Summary Visit Information Date of Admission: Mar 16, 2018 Date of Discharge: Mar 18, 2018 Admitting Diagnosis: Syncope and Collapse, gallstone Final Diagnosis Vasovagal syncope, ischemic colitits Brief Hospital Course Allergies Allergies Coded Allergies Type Severity Reaction Last Updated Verified Penicillins Allergy Intermediate Swelling 03/12/18 Yes Vital Signs Vital Signs Date Time Temp Pulse Resp B/P (MAP) Pulse Ox O2 Delivery O2 Flow Rate FiO2 03/18/18 11:00 97.7 56 18 131/41 (71) 96 Room Air 97.7 Lab Results Laboratory Tests Test 03/17/18 04:05 03/18/18 07:35 White Blood Count 8.1 x10^3/uL (4.0-11.0) 6.2 x10^3/uL (4.0-11.0) Red Blood Count 4.28 x10^6/uL (3.50-5.40) 4.45 x10^6/uL (3.50-5.40) Hemoglobin 12.9 g/dL (12.0-15.5) 13.4 g/dL (12.0-15.5) Hematocrit 37.7 % (36.0-47.0) 39.4 % (36.0-47.0) Mean Corpuscular Volume 88 fL (79-100) 89 fL (79-100) Mean Corpuscular Hemoglobin 30 pg (25-35) 30 pg (25-35) Mean Corpuscular Hemoglobin Concent 34 g/dL (31-37) 34 g/dL (31-37) Red Cell Distribution Width 13.4 % (11.5-14.5) 13.7 % (11.5-14.5) Platelet Count 218 x10^3/uL (140-400) 201 x10^3/uL (140-400) Neutrophils (%) (Auto) 59 % (31-73) 59 % (31-73) Lymphocytes (%) (Auto) 30 % (24-48) 31 % (24-48) Monocytes (%) (Auto) 11 % (0-9) 10 % (0-9) Eosinophils (%) (Auto) 0 % (0-3) 0 % (0-3) Basophils (%) (Auto) 0 % (0-3) 0 % (0-3) Neutrophils # (Auto) 4.8 x10^3uL (1.8-7.7) 3.6 x10^3uL (1.8-7.7) Lymphocytes # (Auto) 2.5 x10^3/uL (1.0-4.8) 1.9 x10^3/uL (1.0-4.8) Monocytes # (Auto) 0.9 x10^3/uL (0.0-1.1) 0.6 x10^3/uL (0.0-1.1) Eosinophils # (Auto) 0.0 x10^3/uL (0.0-0.7) 0.0 x10^3/uL (0.0-0.7) Basophils # (Auto) 0.0 x10^3/uL (0.0-0.2) 0.0 x10^3/uL (0.0-0.2) Sodium Level 139 mmol/L (136-145) 137 mmol/L (136-145) Potassium Level 3.3 mmol/L (3.5-5.1) 3.8 mmol/L (3.5-5.1) Chloride Level 102 mmol/L (98-107) 100 mmol/L (98-107) Carbon Dioxide Level 26 mmol/L (21-32) 28 mmol/L (21-32) Anion Gap 11 (6-14) 9 (6-14) Blood Urea Nitrogen 5 mg/dL (7-20) 6 mg/dL (7-20) Creatinine 0.8 mg/dL (0.6-1.0) 0.8 mg/dL (0.6-1.0) Estimated GFR (Cockcroft-Gault) 68.5 68.5 BUN/Creatinine Ratio 6 (6-20) Glucose Level 113 mg/dL (70-99) 99 mg/dL (70-99) Calcium Level 8.6 mg/dL (8.5-10.1) 9.1 mg/dL (8.5-10.1) Total Bilirubin 0.7 mg/dL (0.2-1.0) Aspartate Amino Transf (AST/SGOT) 14 U/L (15-37) Alanine Aminotransferase (ALT/SGPT) 13 U/L (14-59) Alkaline Phosphatase 69 U/L (46-116) Total Protein 6.1 g/dL (6.4-8.2) Albumin 2.9 g/dL (3.4-5.0) Albumin/Globulin Ratio 0.9 (1.0-1.7) Laboratory Tests Test 03/18/18 07:35 White Blood Count 6.2 x10^3/uL (4.0-11.0) Red Blood Count 4.45 x10^6/uL (3.50-5.40) Hemoglobin 13.4 g/dL (12.0-15.5) Hematocrit 39.4 % (36.0-47.0) Mean Corpuscular Volume 89 fL (79-100) Mean Corpuscular Hemoglobin 30 pg (25-35) Mean Corpuscular Hemoglobin Concent 34 g/dL (31-37) Red Cell Distribution Width 13.7 % (11.5-14.5) Platelet Count 201 x10^3/uL (140-400) Neutrophils (%) (Auto) 59 % (31-73) Lymphocytes (%) (Auto) 31 % (24-48) Monocytes (%) (Auto) 10 % (0-9) Eosinophils (%) (Auto) 0 % (0-3) Basophils (%) (Auto) 0 % (0-3) Neutrophils # (Auto) 3.6 x10^3uL (1.8-7.7) Lymphocytes # (Auto) 1.9 x10^3/uL (1.0-4.8) Monocytes # (Auto) 0.6 x10^3/uL (0.0-1.1) Eosinophils # (Auto) 0.0 x10^3/uL (0.0-0.7) Basophils # (Auto) 0.0 x10^3/uL (0.0-0.2) Sodium Level 137 mmol/L (136-145) Potassium Level 3.8 mmol/L (3.5-5.1) Chloride Level 100 mmol/L (98-107) Carbon Dioxide Level 28 mmol/L (21-32) Anion Gap 9 (6-14) Blood Urea Nitrogen 6 mg/dL (7-20) Creatinine 0.8 mg/dL (0.6-1.0) Estimated GFR (Cockcroft-Gault) 68.5 Glucose Level 99 mg/dL (70-99) Calcium Level 9.1 mg/dL (8.5-10.1) Brief Hospital Course syncoped on a toilet in a [employer] last thursday, N/V after waking up. no abd pain. felt good in ER and went home. with + gallstone in CT NO UTI symptom but abx was given no abd pain ever has loose BM , with some red blood with it as per pt, no abd pain, no rectal pain. said had colonoscopy last year with ischemic colitis but no abd pain at that time too. Seen by cardiology, echo and carotids clear, seen by GI and general surgery, no need for surgery, pain free. Ischemic colitis diagnosed here and [facility] previously, improved with slowly advancing diet. D/C home with family ROS: no Fever, chills, sob or chest pain plan: fu with sx dc ivf advance diet to full liquid as per GI resume home po meds , dc amlodipine, still on lisinopril, checked orthostatic BP pain control if need dced abx checked carotid US, echo, card, gi consult for bloody stool Hb stable tho. t talked to GI, likely can fu as outpt. check cdiff given recent taking abx for "uti" with neg ucx. check fobt echo is ok. dc tmr if no intervention dvt ppx Discharge Information Condition at Discharge: Improved Follow Up: Weeks (2) Disposition/Orders: D/C to Home Scheduled Aspirin (Aspirin Ec) 81 Mg Tablet.dr, 1 TAB PO DAILY, #30 Ref 3 (Reported) Entered as Reported by: VENICE PIERRE on 03/16/181112 Last Action: Continued on 03/16/18 1304 by ROCIO BOURGEOIS MD Cetirizine Hcl (Zyrtec) 10 Mg Tablet, 1 TAB PO DAILY, #30 Ref 2 (Reported) Entered as Reported by: VENICE PIERRE on 03/16/181112 Last Action: Continued on 03/16/18 1304 by ROCIO BOURGEOIS MD Levothyroxine Sodium (Levothyroxine Sodium) 125 Mcg Tablet, 1 TAB PO DAILY, #30 Ref 5 (Reported) Entered as Reported by: VENICE PIERRE on 03/16/181112 Last Action: Converted on 03/16/18 1304 by ROCIO BOURGEOIS MD Multivits-Min/Iron/FA/Lutein (Centrum Silver Women Tablet) 1 Each Tablet, 1 EACH PO DAILY, (Reported) Entered as Reported by: VENICE PIERRE on 03/16/181112 Last Action: Converted on 03/16/181303 by ROCIO BOURGEOIS MD Vit A/Vit C/Vit E/Zinc/Copper (Preservision Areds Tablet) 1 Each Tablet, 1 EACH PO BID, (Reported) Entered as Reported by: VENICE PIERRE on 03/16/181112 Last Action: Converted on 03/16/181303 by ROCIO BOURGEOIS MD Miscellaneous Medications Calcium Carbonate/Vitamin D3 (Calcium + Vitamin D Tablet) 1 Each Tablet, 1 EACH PO, (Reported) Entered as Reported by: VENICE PIERRE on 03/16/181112 Last Action: HELD on 03/16/181303 by ROCIO BOURGEOIS MD Discontinued Medications Amlodipine Besylate (Amlodipine Besylate) 5 Mg Tablet, 5 MG PO DAILY, (Reported) Entered as Reported by: VENICE PIERRE on 03/16/181112 Last Action: Continued on 03/16/181303 by ROCIO BOURGEOIS MD Lisinopril/Hydrochlorothiazide (Lisinopril-Hctz 20-25 Mg Tab) 1 Each Tablet, 1 TAB PO DAILY, #30 Ref 5 (Reported) Entered as Reported by: VENICE PIERRE on 03/16/181112 Last Action: Converted on 03/16/181303 by MD KANDI ARGUELLO CHRISTOPHER S MD Mar 18, 2018 11:40
[2018-03-18 13:00] VITALS: BP 124/39
[2018-03-18 13:02] VITALS: BP 146/39
[2018-03-18 13:04] VITALS: BP 156/51
--- NOTE | 2018-03-18 17:29 | RAD ---
Clinical indications: Syncope.. Duplex sonography of the cervical portion of both carotid arteries was performed including color flow imaging and spectral waveform analysis with flow velocity measurement and rice scale evaluation. Right side: Peak systolic flow velocity of the CCA is 66 cm/sec. Peak systolic flow velocity of the ICA is 60 cm/sec. Thus, the ICA/CCA ratio is less than 1.0. Peak end diastolic flow velocity of the ICA is 20 cm/sec. The peak systolic velocity of the ECA is 101 cm/sec. Left side: Peak systolic flow velocity of the CCA is 54 cm/sec. Peak systolic flow velocity of the ICA is 122 cm/sec. Thus, the ICA/CCA ratio is 2.2. Peak end diastolic flow velocity of the ICA is 37 cm/sec. Peak systolic flow velocity of the ECA is 138 cm/sec. There is mild plaque formation within the right carotid bulb and proximal right ICA which is less than 50%. There is moderate calcified plaque formation within the left carotid bulb and proximal left ICA in the 50-69% range. Antegrade vertebral flow is seen bilaterally. The measurements were made using the NASCET criteria. Impression: 50 - 69% stenosis within the left ICA.. Electronically signed by: Gato Boyd MD (03/18/2018 5:26 PM) [id number]
== END 2018-03-18 15:00 | disposition home or self-care (01) | DRG 393 ==
LOC: ER 08:09 → 4 NORTH 09:01
PROVIDERS: ADMIT Internal Medicine; ATTEND Internal Medicine
DX: K55.9 Vascular disorder of intestine, unspecified (principal); N17.0 Acute kidney failure with tubular necrosis; K62.5 Hemorrhage of anus and rectum; K80.20 Calculus of gallbladder without cholecystitis without obstruction; K57.30 Diverticulosis of large intestine without perforation or abscess without bleeding; M19.90 Unspecified osteoarthritis, unspecified site; E03.9 Hypothyroidism, unspecified; I08.1 Rheumatic disorders of both mitral and tricuspid valves; I10 Essential (primary) hypertension; Z79.82 Long term (current) use of aspirin; Z87.19 Personal history of other diseases of the digestive system; Z98.49 Cataract extraction status, unspecified eye; Z88.0 Allergy status to penicillin; Z79.899 Other long term (current) drug therapy
CPT/HCPCS: 36415; 76705; 80048; 80053; 83690; 85025; 85610; 85730; 87045; 93005; 93306; 93880; 96360; J7030; Q9967; 99285-25